=== PATIENT | female | born 1940 | race Asian ===

== ENCOUNTER 2021-04-24 09:23 | Outpatient (REF) | payer MEDICARE, SELFPAY ==
[2021-04-24 09:52] LABS: Hematocrit 33.4 % (37-47); Hemoglobin 10.9 g/dl (12.0-16.0); Mean Corpuscular HGB Conc 32.6 g/dl (31.0-35.0); Mean Corpuscular Hemoglobin 29.8 pg (27.0-33.0); Mean Corpuscular Volume 91.3 fL (80-98); Mean Platelet Volume 10.2 fL (9.4-12.3); Platelet Count 181 X10*3/uL (160-400); Red Blood Count 3.66 X10*6/uL (4.20-5.50); Red Cell Distribution Width 13.2 % (11.0-16.0)
[2021-04-24 09:59] LABS: Estimated Average Glucose 166 mg/dL; Hemoglobin A1c % 7.4 %
[2021-04-24 11:26] LABS: Alanine Aminotransferase 16 U/L (0-31); Albumin Level 4.3 g/dL (3.5-5.0); Alkaline Phosphatase 40 U/L (39-117); Anion Gap 15 (12-20); Aspartate Amino Transferase 20 U/L (5-31); Bilirubin Direct 0.3 mg/dL (0.0-0.5); Bilirubin Total 0.7 mg/dL (0.0-1.0); Blood Urea Nitrogen 12 mg/dL (9-16); Calcium 9.5 mg/dL (8.4-10.2); Carbon Dioxide 23 mmol/L (22-29); Chloride 103 mmol/L (96-108); Cholesterol 173 mg/dL; Estimated Glomerular Filt Rate > 60; Glucose Random 179 mg/dL (60-115); HDL Cholesterol 93 mg/dL; LDL Cholesterol Calculated 61 mg/dl; Potassium 4.3 mmol/L (3.3-5.1); Sodium 137 mmol/L (135-145); Total Protein 7.3 g/dL (6.5-8.0); Triglycerides 96 mg/dL
[2021-04-24 11:44] LABS: Thyroid Stimulating Hormone 0.78 uIU/mL (0.32-4.0)
== END 2021-04-24 09:24 | disposition home or self-care (01) ==
LOC: HO.10HDL 09:23
PROVIDERS: Visit Provider Internal Medicine
DX: E11.9 Type 2 diabetes mellitus without complications (principal); E78.00 Pure hypercholesterolemia, unspecified; I10 Essential (primary) hypertension; K21.9 Gastro-esophageal reflux disease without esophagitis
CPT/HCPCS: 36415; 80048; 80061; 80076; 83036; 84443; 85027

== ENCOUNTER 2021-11-08 10:08 | Outpatient (REF) | payer MEDICARE, SELFPAY ==
[2021-11-08 13:36] LABS: Hematocrit 34.9 % (37.0-47.0); Hemoglobin 11.5 g/dl (12.0-16.0); Mean Corpuscular Hemoglobin 29.6 pg (27.0-33.0); Mean Corpuscular Volume 89.7 fL (80.0-98.0); Mean Platelet Volume 10.6 fL (9.4-12.3); Platelet Count 207 X10*3/uL (160-400); Red Blood Count 3.89 X10*6/uL (4.20-5.50); Red Cell Distribution Width 13.6 % (11.0-16.0); White Blood Count 7.7 X10*3/uL (4.8-10.8)
[2021-11-08 13:55] LABS: Estimated Average Glucose 177 mg/dL; Hemoglobin A1C 192.1413 umol/L; Hemoglobin A1c % 7.8 %
[2021-11-08 14:01] LABS: Appearance Urine CLEAR; Color Urine YELLOW; Glucose Urine UA NEG (NEG); Leukocyte Esterase Urine 1+ (NEG); Nitrite Urine NEG (NEG); Urine Blood NEG (NEG); Urine Ketones NEG (NEG); Urine Protein NEG (NEG-TRACE)
[2021-11-08 14:08] LABS: Thyroid Stimulating Hormone 0.83 uIU/mL (0.32-4.0)
[2021-11-08 14:11] LABS: Alanine Aminotransferase 20 U/L (0-31); Albumin Level 4.5 g/dL (3.5-5.0); Alkaline Phosphatase 37 U/L (39-117); Anion Gap 15 (12-20); Aspartate Amino Transferase 23 U/L (5-31); Bilirubin Direct 0.3 mg/dL (0.0-0.5); Bilirubin Total 0.7 mg/dL (0.0-1.0); Blood Urea Nitrogen 16 mg/dL (9-16); Calcium 9.9 mg/dL (8.4-10.2); Carbon Dioxide 25 mmol/L (22-29); Chloride 101 mmol/L (96-108); Cholesterol 170 mg/dL; Estimated Glomerular Filt Rate > 60; Glucose Random 213 mg/dL (60-115); HDL Cholesterol 79 mg/dL; LDL Cholesterol Calculated 70 mg/dl; Potassium 4.8 mmol/L (3.3-5.1); Sodium 136 mmol/L (135-145); Total Protein 7.7 g/dL (6.5-8.0); Triglycerides 107 mg/dL
[2021-11-08 14:11] LABS: Renal Epithelial Cells Urine TRACE /LPF; Squamous Epithelial Cell Urine 1+ /LPF
[2021-11-08 14:12] LABS: RBC Urine 0 /HPF (0)
[2021-11-08 14:37] LABS: Creatinine Urine 57.15 mg/dL; Microalbum/Creatinine Ratio Ur 38.4 ug/mg cr
== END 2021-11-08 10:09 | disposition home or self-care (01) ==
LOC: HO.10HDL 10:08
PROVIDERS: Visit Provider Internal Medicine
DX: E11.9 Type 2 diabetes mellitus without complications (principal)
CPT/HCPCS: 36415; 80048; 80061; 80076; 81001; 81003; 82043; 83036; 84443; 85027

== ENCOUNTER 2022-03-29 09:50 | Outpatient (REF) | payer MEDICARE, SELFPAY ==
[2022-03-29 10:28] LABS: Hemoglobin 11.1 g/dl (12.0-16.0); Mean Corpuscular HGB Conc 32.6 g/dl (31.0-35.0); Mean Corpuscular Hemoglobin 29.1 pg (27.0-33.0); Mean Platelet Volume 10.3 fL (9.4-12.3); Platelet Count 179 X10*3/uL (160-400); Red Blood Count 3.82 X10*6/uL (4.20-5.50); Red Cell Distribution Width 13.6 % (11.0-16.0); White Blood Count 7.3 X10*3/uL (4.8-10.8)
[2022-03-29 10:34] LABS: Estimated Average Glucose 180 mg/dL; Hemoglobin A1c % 7.9 %
[2022-03-29 11:20] LABS: Alanine Aminotransferase 17 U/L (0-31); Albumin Level 4.4 g/dL (3.5-5.0); Alkaline Phosphatase 38 U/L (39-117); Aspartate Amino Transferase 23 U/L (5-31); Bilirubin Direct 0.3 mg/dL (0.0-0.5); Bilirubin Total 0.6 mg/dL (0.0-1.0); Cholesterol 171 mg/dL; HDL Cholesterol 77 mg/dL; LDL Cholesterol Calculated 67 mg/dl; Total Protein 7.6 g/dL (6.5-8.0); Triglycerides 139 mg/dL
[2022-03-29 11:36] LABS: Creatinine Urine 26.59 mg/dL; Microalbum/Creatinine Ratio Ur 78.9 ug/mg cr
[2022-03-29 11:38] LABS: Appearance Urine HAZY; Color Urine YELLOW; Glucose Urine UA NEG (NEG); Leukocyte Esterase Urine 1+ (NEG); Nitrite Urine NEG (NEG); Specific Gravity - Urine <= 1.005 (1.005-1.025); Urine Blood NEG (NEG); Urine Ketones NEG (NEG); Urine Protein NEG (NEG-TRACE)
[2022-03-29 11:40] LABS: Thyroid Stimulating Hormone 0.83 uIU/mL (0.32-4.0)
[2022-03-29 12:21] LABS: Renal Epithelial Cells Urine 1+ /LPF; Squamous Epithelial Cell Urine 1+ /LPF
[2022-03-29 12:22] LABS: RBC Urine 0 /HPF (0)
== END 2022-03-29 09:51 | disposition home or self-care (01) ==
LOC: HO.LAB 09:50
PROVIDERS: PCP Internal Medicine; Visit Provider Internal Medicine
DX: E11.9 Type 2 diabetes mellitus without complications (principal); I10 Essential (primary) hypertension
CPT/HCPCS: 36415; 80061; 80076; 81001; 82043; 83036; 84443; 85027

== ENCOUNTER 2022-04-04 10:50 | Emergency (ER) | payer MEDICARE, SELFPAY ==
--- NOTE | ~2022-04-04 | CT_ITS ---
EXAMINATION: CT HEAD WITHOUT CONTRAST CLINICAL INFORMATION: Dizziness. COMPARISON: None TECHNIQUE: Contiguous axial imaging was performed from the skull base to vertex without intravenous administration of contrast. Coronal and sagittal reformatted images were obtained. This CT examination was performed using dose optimization techniques as appropriate, variously including the following: *Automated exposure control *Adjustment of mA and/or kV according to patient size (this includes techniques or standardized protocols for targeted exams where dose is matched to indication/reason for exam; i.e. extremities or head) *Use of iterative reconstruction technique DLP: 654 mGy-cm FINDINGS: There is mild widening of the cortical sulci and associated ventriculomegaly. The lateral ventricles are symmetrical. The third and fourth ventricles are in their normal midline position. The basilar and prepontine cisterns are unremarkable. There is no acute intra or extracerebral abnormality. There is no mass effect or midline shift. Sections through the bony calvarium are unremarkable. The orbits are intact. The paranasal sinuses are clear. The mastoid air cells are clear. CT/CT head/brain wo con IMPRESSION: No acute intracranial pathology.
--- NOTE | ~2022-04-04 | XR_ITS ---
EXAMINATION: XR CHEST CLINICAL INFORMATION: Shortness of breath COMPARISON: None TECHNIQUE: Frontal view of the chest was obtained. FINDINGS: Mild patchy interstitial infiltrates noted. Recommend follow-up PA lateral. Heart size borderline with normal caliber pulmonary vessels. There is degenerative change in both shoulder joints. XR/XR chest 1V IMPRESSION: Infiltrates noted possibly chronic however given the patient's age and history I would recommend a repeat PA and lateral film when clinically feasible.
[2022-04-04 10:54] VITALS: BP 167/79; BP 169/87; PULSE 70; PULSE 81; RESP 16; TEMP 36.6; O2SAT 97; O2SAT 98; BMI 24.7
[2022-04-04 11:02] VITALS: BP 169/81; PULSE 80
[2022-04-04 11:03] VITALS: BP 167/79; PULSE 81
[2022-04-04 11:04] VITALS: BP 173/83; PULSE 80
--- NOTE | 2022-04-04 11:05 | ECG_ITS ---
Test Reason : weakness Blood Pressure : / mmHG Vent. Rate : 081 BPM Atrial Rate : 081 BPM P-R Int : 266 ms QRS Dur : 090 ms QT Int : 388 ms P-R-T Axes : 077 027 048 degrees QTc Int : 450 ms Sinus rhythm with 1st degree A-V block Low voltage QRS Borderline ECG No previous ECGs available Referred By: Keith Feng Electronically Signed By:Eliot Castellano
--- NOTE | 2022-04-04 11:08 | ED_ITS ---
HPI - General Adult General Chief complaint: Weakness Stated complaint: GEN WEAK,DIZZY Time Seen by Provider: 04/04/22 11:04 Source: patient, family ( daughter), EMS and [employer] ( daughter) Mode of arrival: EMS Limitations: no limitations History of Present Illness HPI narrative: 81 years old female BIBA for evaluation of dizziness. Patient with history of diabetes, hypertension, hypercholesterolaemia for 1 day she has been having nonbloody watery diarrhea, patient feels dizzy and lightheadedness more when she changed her position from laying flat to standing Position, no history of recent travel or recent use of antibiotic for any reason or recent hospitalization. Patient has a vague description of dizziness but mostly described as lightheadedness and unsteadiness. Patient has no coughing, no shortness of breath, no chest pain, no recent loss of weight. Patient had FaceTime interview with her PCP who advised the patient to come to the ED for further evaluation. Patient received 2nd booster COVID vaccination ([employer]) 4 days ago. Related Data Home Medications Medication Instructions Recorded Confirmed multivitamin 1 tab PO DAILY 04/04/22 vitamin B complex 1 tab PO DAILY 04/04/22 Previous Rx's Medication Instructions Recorded miscellaneous medical supply 1 ea MISCELLANEOUS DAILY #1 ea 05/07/21 blood sugar diagnostic (OneTouch #100 ea 08/20/21 Ultra Test) blood-glucose meter (OneTouch #1 ea 08/20/21 Ultra2 Meter) sitagliptin 50 mg tablet (Januvia) 50 mg PO DAILY 90 Days #90 tab 10/17/21 lancets 30 gauge (OneTouch Delica #100 ea 11/15/21 Lancets) metformin 1,000 mg tablet 1,000 mg PO BID #180 tab 12/04/21 lisinopril 10 mg tablet 10 mg PO DAILY #90 tab 01/03/22 pioglitazone 30 mg tablet 30 mg PO DAILY #90 tab 01/03/22 simvastatin 10 mg tablet 10 mg PO BEDTIME #90 tab 02/08/22 bisoprolol 5 1 tab PO DAILY #90 tab 02/19/22 mg-hydrochlorothiazide 6.25 mg tablet betamethasone dipropionate 0.05 % 1 appl TOPICAL DAILY PRN #45 g 03/20/22 topical cream aspirin 81 mg tablet,delayed 81 mg PO DAILY #90 tab 03/27/22 release Allergies Allergy/AdvReac Type Severity Reaction Status Date / Time No Known Allergies Allergy Verified 04/04/22 09:35 Review of Systems Review of Systems: All other systems are reviewed and are negative Constitutional: Reports as per HPI and Reports no additional constitutional comp laints Eyes: Reports as per HPI and Reports no additional eye complaints Reports system reviewed and no additional complaints, except as documented Cardiovascular: Reports as per HPI and Reports no additional cardiovascular complaints Respiratory: Reports as per HPI and Reports no additional respiratory complaints Gastrointestinal: Reports as per HPI and Reports no additional gastrointestinal complaints Genitourinary: Reports no additional female genitourinary complaints Musculoskeletal: Reports no additional musculoskeletal complaints Skin/Breast: Reports system reviewed and no additional complaints, except as docu Psychiatric: Reports no additional psychiatric complaints Endocrine: Reports no additional endocrine complaints Hematologic/Lymphatic: Reports no additional hematologic/lymphatic complaints Allergic/Immunologic: Reports no additional allergic/immunologic complaints Reports system reviewed and no additional complaints, except as documented and Reports Abnormal speech present [facility] Past Medical History Medical History Diabetes mellitus Essential (primary) hypertension Hypercholesterolemia Surgical History No pertinent past surgical history Family History Family History Father No problems noted. Mother No problems noted. 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 Blood pressure normal. Heart rate normal. Respiration rate normal. Temperature normal. Oxygen saturation normal. Orthostatic vital signs are unremarkable. Appearance: Alert. Oriented X3. No acute distress. Head: Normal external exam. Normocephalic. Atraumatic. No [place] signs noted. No raccoon eyes noted Eyes: PERRLA. EOMI. Conjunctiva and sclera normal. Eyelids normal. ENT: TM's Normal. Pharynx normal. Uvula midline. Moist mucous membranes. No trismus noted. No drooling noted. No muffled voice noted. Neck: Normal inspection. Neck supple. FROM. No adenopathy. Thyroid Normal. No meningeal signs. No neck mass noted. CVS: Normal heart rate and rhythm. Heart sound normal. No murmurs noted. Pulses normal throughout. Respiratory: No respiratory distress. Painless inspiration. Breath sounds normal. No wheezes/rales/rhonchi noted. Chest nontender. No accessory muscle usage noted or decreased air movement noted. Abdomen: Soft and nontender. Bowel sounds normal in all 4 quadrants. No distention noted. No organomegaly noted. No visible injury noted. Back: No CVA tenderness. Full range of motion noted. Skin: Skin warm and dry. Normal skin color. Normal skin turgor. No rashes/lesions/lacerations noted. Extremities: No lower extremity edema. Extremities exhibit normal range of motion. Extremities nontender. Neuro: Oriented X 3. Cranial nerve exam: II-XII are grossly intact No motor deficit. No sensory deficit. Reflexes normal. Course Course Course Narrative: assessment and plan. 81-year-old female came in with nonbloody watery diarrhea and feeling nauseous after taking her 2nd COVID vaccination booster 4 days ago, physical exam is consistent with dehydration, patient feels better after 2 L normal saline And meclizine, patient was able to ambulate in the emergency department with a steady gait. Will discharge and follow up with PCP. Medical Decision Making Lab Data Lab results reviewed: Yes I reviewed the patient's lab results. Result diagrams: 04/04/22 11:28 04/04/22 11:28 Labs: Lab Results 04/04/22 04/04/22 04/04/22 Range/Units 11:28 11:28 11:28 WBC 6.5 (4.8-10.8) X10*3/uL RBC 3.75 L (4.20-5.50) X10*6/uL Hgb 11.0 L (12.0-16.0) g/dl Hct 33.1 L (37.0-47.0) % MCV 88.3 (80.0-98.0) fL MCH 29.3 (27.0-33.0) pg MCHC 33.2 (31.0-35.0) g/dl RDW 13.5 (11.0-16.0) % Plt Count 170 (160-400) X10*3/uL MPV 9.9 (9.4-12.3) fL Immature Gran % (Auto) 0.6 H (0.0-0.4) % Neut % (Auto) 71.9 (45-73) % Lymph % (Auto) 20.6 (20-40) % [place] % (Auto) 6.0 (2-11) % Eos % (Auto) 0.3 (0-4) % Baso % (Auto) 0.6 (0-2) % Lymph # (Auto) 1.4 (1.2-4.9) X10*3/uL [place] # (Auto) 0.4 (0.1-1.2) X10*3/uL Eos # (Auto) 0.0 (0.0-0.4) X10*3/uL Baso # (Auto) 0.0 (0.0-0.2) X10*3/uL Abs Immat Gran (auto) 0.04 H (0.00-0.03) X10*3/uL Absolute Neuts (auto) 4.7 (2.0-8.3) x10*3/uL Absolute Nucleated RBC 0.000 (0.0-0.012) X10*3/uL Nucleated RBC % (auto) 0.0 (0.0-0.2) /100WBC Sodium 135 (135-145) mmol/L Potassium 4.1 (3.3-5.1) mmol/L Chloride 101 (96-108) mmol/L Carbon Dioxide 22 (22-29) mmol/L Anion Gap 16 (12-20) BUN 10 (9-16) mg/dL Creatinine 0.81 (0.5-1.4) mg/dL Estim Creat Clear Calc 48.1 Estimated GFR > 60 Random Glucose 232 H (60-115) mg/dL Calcium 9.1 D (8.4-10.2) mg/dL Total Bilirubin 0.6 (0.0-1.0) mg/dL Direct Bilirubin 0.3 (0.0-0.5) mg/dL AST 25 (5-31) U/L ALT 20 (0-31) U/L Alkaline Phosphatase 38 L (39-117) U/L Troponin I High Sens < 3.5 (<3.5-17.0) ng/L B-Natriuretic Peptide (<100) pg/mL Total Protein 7.3 (6.5-8.0) g/dL Albumin 4.1 (3.5-5.0) g/dL Lipase 36 (8-78) U/L Urine Color Urine Appearance Urine pH (5.0-8.0) Ur Specific [place] (1.005-1.025) Urine Protein (NEG-TRACE) MG/DL Urine Glucose (UA) (NEG) MG/DL Urine Ketones (NEG) MG/DL Urine Blood (NEG) Urine Nitrite (NEG) Ur Leukocyte Esterase (NEG) Urine RBC (0) /HPF Urine WBC (0-4) /HPF Ur Squamous Epith Cells /LPF Urine Bacteria /LPF Stool Occult Blood (NEGATIVE) C. difficile Tox B Gene (Negative) COVID-19 ([facility]) (Negative) COVID-19 Clin Com 04/04/22 04/04/22 04/04/22 Range/Units 11:28 11:28 11:49 WBC (4.8-10.8) X10*3/uL RBC (4.20-5.50) X10*6/uL Hgb (12.0-16.0) g/dl Hct (37.0-47.0) % MCV (80.0-98.0) fL MCH (27.0-33.0) pg MCHC (31.0-35.0) g/dl RDW (11.0-16.0) % Plt Count (160-400) X10*3/uL MPV (9.4-12.3) fL Immature Gran % (Auto) (0.0-0.4) % Neut % (Auto) (45-73) % Lymph % (Auto) (20-40) % [place] % (Auto) (2-11) % Eos % (Auto) (0-4) % Baso % (Auto) (0-2) % Lymph # (Auto) (1.2-4.9) X10*3/uL [place] # (Auto) (0.1-1.2) X10*3/uL Eos # (Auto) (0.0-0.4) X10*3/uL Baso # (Auto) (0.0-0.2) X10*3/uL Abs Immat Gran (auto) (0.00-0.03) X10*3/uL Absolute Neuts (auto) (2.0-8.3) x10*3/uL Absolute Nucleated RBC (0.0-0.012) X10*3/uL Nucleated RBC % (auto) (0.0-0.2) /100WBC Sodium (135-145) mmol/L Potassium (3.3-5.1) mmol/L Chloride (96-108) mmol/L Carbon Dioxide (22-29) mmol/L Anion Gap (12-20) BUN (9-16) mg/dL Creatinine (0.5-1.4) mg/dL Estim Creat Clear Calc Estimated GFR Random Glucose (60-115) mg/dL Calcium (8.4-10.2) mg/dL Total Bilirubin (0.0-1.0) mg/dL Direct Bilirubin (0.0-0.5) mg/dL AST (5-31) U/L ALT (0-31) U/L Alkaline Phosphatase (39-117) U/L Troponin I High Sens (<3.5-17.0) ng/L B-Natriuretic Peptide 116 H (<100) pg/mL Total Protein (6.5-8.0) g/dL Albumin (3.5-5.0) g/dL Lipase (8-78) U/L Urine Color YELLOW Urine Appearance CLEAR Urine pH 6.0 (5.0-8.0) Ur Specific [place] 1.010 (1.005-1.025) Urine Protein NEG (NEG-TRACE) MG/DL Urine Glucose (UA) >=1000 H (NEG) MG/DL Urine Ketones NEG (NEG) MG/DL Urine Blood NEG (NEG) Urine Nitrite NEG (NEG) Ur Leukocyte Esterase NEG (NEG) Urine RBC 0 (0) /HPF Urine WBC 1-4 (0-4) /HPF Ur Squamous Epith Cells 1+ /LPF Urine Bacteria TRACE /LPF Stool Occult Blood (NEGATIVE) C. difficile Tox B Gene (Negative) COVID-19 ([facility]) Negative (Negative) COVID-19 Clin Com See Note 04/04/22 04/04/22 Range/Units 12:53 12:53 WBC (4.8-10.8) X10*3/uL RBC (4.20-5.50) X10*6/uL Hgb (12.0-16.0) g/dl Hct (37.0-47.0) % MCV (80.0-98.0) fL MCH (27.0-33.0) pg MCHC (31.0-35.0) g/dl RDW (11.0-16.0) % Plt Count (160-400) X10*3/uL MPV (9.4-12.3) fL Immature Gran % (Auto) (0.0-0.4) % Neut % (Auto) (45-73) % Lymph % (Auto) (20-40) % [place] % (Auto) (2-11) % Eos % (Auto) (0-4) % Baso % (Auto) (0-2) % Lymph # (Auto) (1.2-4.9) X10*3/uL [place] # (Auto) (0.1-1.2) X10*3/uL Eos # (Auto) (0.0-0.4) X10*3/uL Baso # (Auto) (0.0-0.2) X10*3/uL Abs Immat Gran (auto) (0.00-0.03) X10*3/uL Absolute Neuts (auto) (2.0-8.3) x10*3/uL Absolute Nucleated RBC (0.0-0.012) X10*3/uL Nucleated RBC % (auto) (0.0-0.2) /100WBC Sodium (135-145) mmol/L Potassium (3.3-5.1) mmol/L Chloride (96-108) mmol/L Carbon Dioxide (22-29) mmol/L Anion Gap (12-20) BUN (9-16) mg/dL Creatinine (0.5-1.4) mg/dL Estim Creat Clear Calc Estimated GFR Random Glucose (60-115) mg/dL Calcium (8.4-10.2) mg/dL Total Bilirubin (0.0-1.0) mg/dL Direct Bilirubin (0.0-0.5) mg/dL AST (5-31) U/L ALT (0-31) U/L Alkaline Phosphatase (39-117) U/L Troponin I High Sens (<3.5-17.0) ng/L B-Natriuretic Peptide (<100) pg/mL Total Protein (6.5-8.0) g/dL Albumin (3.5-5.0) g/dL Lipase (8-78) U/L Urine Color Urine Appearance Urine pH (5.0-8.0) Ur Specific [place] (1.005-1.025) Urine Protein (NEG-TRACE) MG/DL Urine Glucose (UA) (NEG) MG/DL Urine Ketones (NEG) MG/DL Urine Blood (NEG) Urine Nitrite (NEG) Ur Leukocyte Esterase (NEG) Urine RBC (0) /HPF Urine WBC (0-4) /HPF Ur Squamous Epith Cells /LPF Urine Bacteria /LPF Stool Occult Blood NEGATIVE (NEGATIVE) C. difficile Tox B Gene NEGATIVE (Negative) COVID-19 ([facility]) (Negative) COVID-19 Clin Com Imaging Data CT scan - head: Attestation: I personally reviewed and interpreted this imaging study as follows: Radiologist's impression: no acute intracranial pathology. Chest x-ray: Attestation: I personally reviewed and interpreted this imaging study as follows: Radiologist's impression: Infiltrates noted possibly chronic however given the patient's age and history I would recommend a repeat PA and lateral film when clinically feasible. ? ECG Data Attestation: I personally reviewed and interpreted this ECG as follows: Interpretation: Normal sinus rhythm at 81 beats per minutes, prolonged [place] interval and first- degree AV block, normal intervals, nonspecific T-ST changes. Discharge Plan Discharge Clinical Impression: Dehydration, Dizziness Patient Disposition: Home, Self-Care Instructions: Dizziness (ED) Prescriptions: No Action miscellaneous medical supply Misc 1 ea miscellaneous DAILY Qty: 1 0RF Rx Instructions: DIABETIC SHOES (DME) OneTouch Ultra Test Strip See Rx Instructions .Route Qty: 100 0RF Rx Instructions: Test Daily (DME) blood-glucose meter [PylbaTouch Ultra2 Meter] Kit See Rx Instructions .ROUTE .MEDSUPPLY Qty: 1 0RF Rx Instructions: TEST DAILY Januvia 50 mg tablet 50 mg PO DAILY 90 Days Qty: 90 1RF metformin 1,000 mg tablet 1,000 mg PO BID Qty: 180 1RF lisinopril 10 mg tablet 10 mg PO DAILY Qty: 90 1RF pioglitazone 30 mg tablet 30 mg PO DAILY Qty: 90 1RF simvastatin 10 mg tablet 10 mg PO BEDTIME Qty: 90 1RF bisoprolol-hydrochlorothiazide 5-6.25 mg tablet 1 tab PO DAILY Qty: 90 1RF betamethasone dipropionate 0.05 % cream 1 appl topical DAILY PRN (Reason: skin irritation) Qty: 45 0RF aspirin 81 mg tablet,delayed release (DR/EC) 81 mg PO DAILY Qty: 90 0RF multivitamin Tablet 1 tab PO DAILY 0RF vitamin B complex Tablet 1 tab PO DAILY 0RF (DME) lancets [OneTouch Delica Lancets] [facility] See Rx Instructions .ROUTE .MEDSUPPLY Qty: 100 0RF Rx Instructions: TEST DAILY Referrals: Marcellus Goldstein MD [Primary Care Provider] -
[2022-04-04] MEDS: 0.9 % Sodium Chloride 1,000 ML 999 ML IV ×2 (11:11→12:58)
[2022-04-04 11:32] LABS: MANUAL DIFF FLAG NO
[2022-04-04 11:36] LABS: Basophils Percent Auto 0.6 % (0-2); Eosinophils Percent Auto 0.3 % (0-4); Hematocrit 33.1 % (37.0-47.0); Imm Gran Abs Auto 0.04 X10*3/uL (0.00-0.03); Imm Gran Pct Auto 0.6 % (0.0-0.4); Lymphocytes Absolute Auto 1.4 X10*3/uL (1.2-4.9); Lymphocytes Percent Auto 20.6 % (20-40); Mean Corpuscular HGB Conc 33.2 g/dl (31.0-35.0); Mean Corpuscular Hemoglobin 29.3 pg (27.0-33.0); Mean Corpuscular Volume 88.3 fL (80.0-98.0); Mean Platelet Volume 9.9 fL (9.4-12.3); Monocytes Absolute Auto 0.4 X10*3/uL (0.1-1.2); Neutrophils Absolute Auto 4.7 x10*3/uL (2.0-8.3); Neutrophils Percent Auto 71.9 % (45-73); Platelet Count 170 X10*3/uL (160-400); Red Blood Count 3.75 X10*6/uL (4.20-5.50); Red Cell Distribution Width 13.5 % (11.0-16.0); White Blood Count 6.5 X10*3/uL (4.8-10.8)
[2022-04-04 11:50] LABS: COVID-19 Test Negative (Negative)
[2022-04-04 11:58] LABS: Appearance Urine CLEAR; Color Urine YELLOW; Glucose Urine UA >=1000 MG/DL (NEG); Leukocyte Esterase Urine NEG (NEG); Nitrite Urine NEG (NEG); Urine Blood NEG (NEG); Urine Ketones NEG (NEG); Urine Protein NEG (NEG-TRACE)
[2022-04-04 12:03] LABS: Alanine Aminotransferase 20 U/L (0-31); Albumin Level 4.1 g/dL (3.5-5.0); Alkaline Phosphatase 38 U/L (39-117); Anion Gap 16 (12-20); Aspartate Amino Transferase 25 U/L (5-31); Bilirubin Direct 0.3 mg/dL (0.0-0.5); Bilirubin Total 0.6 mg/dL (0.0-1.0); Blood Urea Nitrogen 10 mg/dL (9-16); Calcium 9.1 mg/dL (8.4-10.2); Carbon Dioxide 22 mmol/L (22-29); Chloride 101 mmol/L (96-108); Creatinine Clr Calc Pharmacy 48.1; Estimated Glomerular Filt Rate > 60; Glucose Random 232 mg/dL (60-115); Lipase 36 U/L (8-78); Potassium 4.1 mmol/L (3.3-5.1); Sodium 135 mmol/L (135-145); Total Protein 7.3 g/dL (6.5-8.0)
[2022-04-04 12:07] LABS: B Type Natriuretic Peptide 116 pg/mL (<100); Troponin-I High Sensitivity < 3.5 ng/L (<3.5-17.0)
[2022-04-04 12:08] LABS: Bacteria Urine TRACE /LPF; RBC Urine 0 /HPF (0); Squamous Epithelial Cell Urine 1+ /LPF
[2022-04-04 12:27] VITALS: BP 153/72; PULSE 73; RESP 10; O2SAT 96
[2022-04-04 13:11] LABS: OBS Int Ctl Valid YES; OBS1 NEGATIVE (NEGATIVE)
[2022-04-04 14:02] LABS: CDiff Gene PCR NEGATIVE (Negative)
[2022-04-04] MEDS: Loperamide HCl 2 MG CAPSULE PO (14:32)
[2022-04-04 14:37] VITALS: BP 149/69; PULSE 75; RESP 16; O2SAT 99
[2022-04-04] MEDS: Meclizine HCl 25 MG TABLET PO (15:30)
== END 2022-04-04 17:30 | disposition home or self-care (01) ==
PROVIDERS: Emergency Provider Emergency Medicine; PCP Internal Medicine
DX: R42 Dizziness and giddiness (principal); E86.0 Dehydration; R53.1 Weakness; Z20.822 Contact with and (suspected) exposure to COVID-19; E11.9 Type 2 diabetes mellitus without complications; I10 Essential (primary) hypertension; E78.5 Hyperlipidemia, unspecified; Z79.899 Other long term (current) drug therapy; Z79.82 Long term (current) use of aspirin; Z79.02 Long term (current) use of antithrombotics/antiplatelets
CPT/HCPCS: 36415; 70450; 71045; 80048; 80076; 81001; 82272; 83690; 83880; 84484; 85025; 87493; 87635; 93005; 96360; 96361; 99284

== ENCOUNTER 2022-05-24 11:18 | Outpatient (REF) | payer OTHER, SELFPAY ==
--- NOTE | ~2022-05-24 | XR_ITS ---
EXAMINATION: XR BILATERAL KNEES CLINICAL INFORMATION: Bilateral knee pain. COMPARISON: None. TECHNIQUE: 3 views of each knee. FINDINGS: LEFT KNEE: 3 views of the left knee do not demonstrate any evidence of acute fracture or dislocation. There is narrowing of the medial joint space compartment with marginal spurring and sclerosis. There is some narrowing of the patellofemoral joint with marginal spurring. Small patella spurs seen at sites of insertion of the quadriceps and patellar tendons. Bony density adjacent to the mediofemoral condyle is present consistent with previous medial collateral ligament injury. There is a small amount of suprapatellar fluid present. Lateral joint space compartment is maintained. RIGHT KNEE: 3 views of the right knee demonstrate minimal narrowing of the medial joint space compartment. No acute fracture or dislocation is evident. No knee effusion is seen. There is spurring about the patellofemoral joint involving both medial and lateral facets. Patella spurs at insertion quadriceps tendon noted. 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
--- NOTE | ~2022-05-24 | XR_ITS ---
EXAMINATION: XR BILATERAL KNEES CLINICAL INFORMATION: Bilateral knee pain. COMPARISON: None. TECHNIQUE: 3 views of each knee. FINDINGS: LEFT KNEE: 3 views of the left knee do not demonstrate any evidence of acute fracture or dislocation. There is narrowing of the medial joint space compartment with marginal spurring and sclerosis. There is some narrowing of the patellofemoral joint with marginal spurring. Small patella spurs seen at sites of insertion of the quadriceps and patellar tendons. Bony density adjacent to the mediofemoral condyle is present consistent with previous medial collateral ligament injury. There is a small amount of suprapatellar fluid present. Lateral joint space compartment is maintained. RIGHT KNEE: 3 views of the right knee demonstrate minimal narrowing of the medial joint space compartment. No acute fracture or dislocation is evident. No knee effusion is seen. There is spurring about the patellofemoral joint involving both medial and lateral facets. Patella spurs at insertion quadriceps tendon noted. 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
== END 2022-05-24 11:19 | disposition home or self-care (01) ==
LOC: HO.XRAY 11:18
PROVIDERS: PCP Internal Medicine; Visit Provider Nurse Practitioner Family
DX: M25.561 Pain in right knee (principal); M25.562 Pain in left knee
CPT/HCPCS: 73562

== ENCOUNTER 2022-07-06 09:47 | Outpatient (REF) | payer OTHER, SELFPAY ==
[2022-07-06 11:35] LABS: Appearance Urine Clear; Color Urine Yellow; Glucose Urine UA Negative (Negative); Leukocyte Esterase Urine Moderate (2+) (Negative); Nitrite Urine Negative (Negative); Urine Blood Negative (Negative); Urine Ketones Negative (Negative); Urine Protein Trace mg/dL (Neg-Trace)
[2022-07-06 11:41] LABS: Bacteria Urine None Seen (None Seen); Hyaline Casts Urine 0-2 /LPF (0-2); RBC Urine 0-2 /HPF (0-2); Squamous Epithelial Cell Urine 0-2 /HPF (0-2); UACC Culture Trigger YES; WBC Urine 21-50 /HPF (0-5)
== END 2022-07-06 09:48 | disposition home or self-care (01) ==
LOC: HO.LAB 09:47
PROVIDERS: PCP Internal Medicine; Visit Provider Internal Medicine
DX: I10 Essential (primary) hypertension (principal); E11.9 Type 2 diabetes mellitus without complications
CPT/HCPCS: 81001; 87086

== ENCOUNTER 2022-07-09 09:38 | Outpatient (REF) | payer OTHER, SELFPAY ==
[2022-07-09 10:44] LABS: Hematocrit 33.6 % (37.0-47.0); Hemoglobin 11.1 g/dl (12.0-16.0); Mean Corpuscular Hemoglobin 29.6 pg (27.0-33.0); Mean Corpuscular Volume 89.6 fL (80.0-98.0); Mean Platelet Volume 10.8 fL (9.4-12.3); Platelet Count 192 X10*3/uL (160-400); Red Blood Count 3.75 X10*6/uL (4.20-5.50); Red Cell Distribution Width 13.3 % (11.0-16.0); White Blood Count 6.9 X10*3/uL (4.8-10.8)
[2022-07-09 11:09] LABS: Estimated Average Glucose 180 mg/dL; Hemoglobin A1c % 7.9 %
[2022-07-09 11:21] LABS: Alanine Aminotransferase 19 U/L (0-31); Albumin Level 4.2 g/dL (3.5-5.0); Alkaline Phosphatase 44 U/L (39-117); Anion Gap 16 (12-20); Aspartate Amino Transferase 27 U/L (5-31); Bilirubin Direct 0.3 mg/dL (0.0-0.5); Bilirubin Total 0.7 mg/dL (0.0-1.0); Blood Urea Nitrogen 11 mg/dL (9-16); Calcium 9.5 mg/dL (8.4-10.2); Carbon Dioxide 26 mmol/L (22-29); Chloride 101 mmol/L (96-108); Cholesterol 163 mg/dL; Estimated Glomerular Filt Rate > 60; Glucose Random 214 mg/dL (60-115); HDL Cholesterol 82 mg/dL; LDL Cholesterol Calculated 61 mg/dl; Potassium 4.9 mmol/L (3.3-5.1); Sodium 138 mmol/L (135-145); Total Protein 7.3 g/dL (6.5-8.0); Triglycerides 100 mg/dL
[2022-07-09 11:30] LABS: Thyroid Stimulating Hormone 0.68 uIU/mL (0.32-4.0)
== END 2022-07-09 09:39 | disposition home or self-care (01) ==
LOC: HO.LAB 09:38
PROVIDERS: PCP Internal Medicine; Visit Provider Internal Medicine
DX: E11.9 Type 2 diabetes mellitus without complications (principal)
CPT/HCPCS: 36415; 80048; 80061; 80076; 83036; 84443; 85027

== ENCOUNTER 2022-10-04 10:02 | Outpatient (REF) | payer OTHER, SELFPAY ==
[2022-10-04 10:58] LABS: Appearance Urine Cloudy; Color Urine Yellow; Glucose Urine UA Negative (Negative); Leukocyte Esterase Urine Large (3+) (Negative); Nitrite Urine Negative (Negative); PH 5.5 (5.0-9.0); Specific Gravity - Urine 1.015 (1.005-1.025); UMIC TRIGGER UA YES; Urine Blood Negative (Negative); Urine Ketones Negative (Negative); Urine Protein Negative (Neg-Trace)
[2022-10-04 10:58] LABS: Hemoglobin 10.9 g/dl (12.0-16.0); Mean Corpuscular Hemoglobin 29.1 pg (27.0-33.0); Mean Corpuscular Volume 88.2 fL (80.0-98.0); Mean Platelet Volume 10.7 fL (9.4-12.3); Platelet Count 185 X10*3/uL (160-400); Red Blood Count 3.74 X10*6/uL (4.20-5.50); Red Cell Distribution Width 13.4 % (11.0-16.0); White Blood Count 7.4 X10*3/uL (4.8-10.8)
[2022-10-04 11:11] LABS: Bacteria Urine None Seen (None Seen); Hyaline Casts Urine 0-2 /LPF (0-2); Other Crystals Urine Present; RBC Urine 0-2 /HPF (0-2); WBC Urine >50 /HPF (0-5)
[2022-10-04 11:41] LABS: Alanine Aminotransferase 18 U/L (0-31); Albumin Level 4.3 g/dL (3.5-5.0); Alkaline Phosphatase 38 U/L (39-117); Anion Gap 17 (12-20); Aspartate Amino Transferase 25 U/L (5-31); Bilirubin Direct 0.3 mg/dL (0.0-0.5); Bilirubin Total 0.7 mg/dL (0.0-1.0); Blood Urea Nitrogen 15 mg/dL (9-16); Calcium 9.7 mg/dL (8.4-10.2); Carbon Dioxide 24 mmol/L (22-29); Chloride 100 mmol/L (96-108); Cholesterol 158 mg/dL; Estimated Glomerular Filt Rate > 60; Glucose Random 202 mg/dL (60-115); HDL Cholesterol 78 mg/dL; LDL Cholesterol Calculated 63 mg/dl; Potassium 4.5 mmol/L (3.3-5.1); Sodium 136 mmol/L (135-145); Total Protein 7.4 g/dL (6.5-8.0); Triglycerides 88 mg/dL
[2022-10-04 11:46] LABS: Estimated Average Glucose 186 mg/dL; Hemoglobin A1c % 8.1 %
[2022-10-04 11:48] LABS: Thyroid Stimulating Hormone 0.82 uIU/mL (0.32-4.0)
== END 2022-10-04 10:03 | disposition home or self-care (01) ==
LOC: HO.LAB 10:02
PROVIDERS: PCP Internal Medicine; Visit Provider Internal Medicine
DX: E11.9 Type 2 diabetes mellitus without complications (principal); K21.9 Gastro-esophageal reflux disease without esophagitis
CPT/HCPCS: 36415; 80048; 80061; 80076; 81001; 83036; 84443; 85027

== ENCOUNTER 2022-12-07 09:49 | Outpatient (REF) | payer OTHER, SELFPAY ==
[2022-12-07 10:07] LABS: Hematocrit 34.7 % (37.0-47.0); Hemoglobin 11.4 g/dl (12.0-16.0); Mean Corpuscular HGB Conc 32.9 g/dl (31.0-35.0); Mean Corpuscular Hemoglobin 29.6 pg (27.0-33.0); Mean Corpuscular Volume 90.1 fL (80.0-98.0); Mean Platelet Volume 10.2 fL (9.4-12.3); Platelet Count 174 X10*3/uL (160-400); Red Blood Count 3.85 X10*6/uL (4.20-5.50); Red Cell Distribution Width 13.2 % (11.0-16.0); White Blood Count 7.5 X10*3/uL (4.8-10.8)
[2022-12-07 10:25] LABS: Estimated Average Glucose 177 mg/dL; Hemoglobin A1c % 7.8 %
[2022-12-07 10:37] LABS: Alanine Aminotransferase 17 U/L (0-31); Albumin Level 4.2 g/dL (3.5-5.0); Alkaline Phosphatase 43 U/L (39-117); Anion Gap 15 (12-20); Aspartate Amino Transferase 23 U/L (5-31); Bilirubin Direct 0.3 mg/dL (0.0-0.5); Bilirubin Total 0.8 mg/dL (0.0-1.0); Blood Urea Nitrogen 15 mg/dL (9-16); Calcium 9.5 mg/dL (8.4-10.2); Carbon Dioxide 27 mmol/L (22-29); Chloride 100 mmol/L (96-108); Cholesterol 176 mg/dL; Estimated Glomerular Filt Rate > 60; Glucose Random 204 mg/dL (60-115); HDL Cholesterol 78 mg/dL; LDL Cholesterol Calculated 78 mg/dl; Potassium 4.3 mmol/L (3.3-5.1); Sodium 138 mmol/L (135-145); Total Protein 7.3 g/dL (6.5-8.0); Triglycerides 101 mg/dL
[2022-12-07 10:53] LABS: Thyroid Stimulating Hormone 0.78 uIU/mL (0.32-4.0)
== END 2022-12-07 09:50 | disposition home or self-care (01) ==
LOC: HO.LAB 09:49
PROVIDERS: PCP Internal Medicine; Visit Provider Internal Medicine
DX: E11.9 Type 2 diabetes mellitus without complications (principal)
CPT/HCPCS: 36415; 80048; 80061; 80076; 83036; 84443; 85027

== ENCOUNTER 2023-04-08 12:39 | Outpatient (REF) | payer OTHER, SELFPAY ==
[2023-04-08 13:03] LABS: Appearance Urine Turbid; Color Urine Yellow; Glucose Urine UA 500 mg/dL (Negative); Leukocyte Esterase Urine Large (3+) (Negative); Nitrite Urine Negative (Negative); Specific Gravity - Urine 1.015 (1.005-1.025); UMIC TRIGGER UACC YES; Urine Blood Small (1+) (Negative); Urine Ketones Negative (Negative); Urine Protein 100 (2+) mg/dL (Neg-Trace)
[2023-04-08 13:21] LABS: Bacteria Urine 1+ (None Seen); Hyaline Casts Urine 0-2 /LPF (0-2); Squamous Epithelial Cell Urine 0-2 /HPF (0-2); UACC Culture Trigger YES; WBC Urine >50 /HPF (0-5)
== END 2023-04-08 12:40 | disposition home or self-care (01) ==
LOC: HO.LNP 12:39
PROVIDERS: Visit Provider Internal Medicine
DX: R82.90 Unspecified abnormal findings in urine (principal); R68.89 Other general symptoms and signs
CPT/HCPCS: 81001; 81003; 87086

== ENCOUNTER 2023-04-21 13:46 | Outpatient (REF) | payer OTHER, SELFPAY ==
[2023-04-22 14:23] LABS: Appearance Urine Clear; Color Urine Dark Yellow; Glucose Urine UA Negative (Negative); Leukocyte Esterase Urine Large (3+) (Negative); Nitrite Urine Negative (Negative); PH 5.5 (5.0-9.0); Specific Gravity - Urine 1.015 (1.005-1.025); UMIC TRIGGER UACC YES; Urine Blood Negative (Negative); Urine Ketones Negative (Negative); Urine Protein Negative (Neg-Trace)
[2023-04-22 14:29] LABS: Bacteria Urine Trace (None Seen); Hyaline Casts Urine 0-2 /LPF (0-2); RBC Urine 0-2 /HPF (0-2); UACC Culture Trigger YES; WBC Urine >50 /HPF (0-5)
== END 2023-04-21 13:47 | disposition home or self-care (01) ==
LOC: HO.LNP 13:46
PROVIDERS: Visit Provider Internal Medicine
DX: N39.0 Urinary tract infection, site not specified (principal)
CPT/HCPCS: 81001; 81003; 87086

== ENCOUNTER 2023-06-14 10:02 | Outpatient (REF) | payer OTHER, SELFPAY ==
[2023-06-14 10:52] LABS: Hematocrit 32.6 % (37.0-47.0); Hemoglobin 10.6 g/dl (12.0-16.0); Mean Corpuscular HGB Conc 32.5 g/dl (31.0-35.0); Mean Corpuscular Hemoglobin 28.4 pg (27.0-33.0); Mean Corpuscular Volume 87.4 fL (80.0-98.0); Mean Platelet Volume 10.3 fL (9.4-12.3); Platelet Count 213 X10*3/uL (160-400); Red Blood Count 3.73 X10*6/uL (4.20-5.50); Red Cell Distribution Width 13.8 % (11.0-16.0); White Blood Count 6.5 X10*3/uL (4.8-10.8)
[2023-06-14 10:59] LABS: Appearance Urine Clear; Color Urine Yellow; Glucose Urine UA Negative (Negative); Leukocyte Esterase Urine Moderate (2+) (Negative); Nitrite Urine Negative (Negative); UMIC TRIGGER UA YES; Urine Blood Negative (Negative); Urine Ketones Negative (Negative); Urine Protein Negative (Neg-Trace)
[2023-06-14 11:04] LABS: Bacteria Urine None Seen (None Seen); Hyaline Casts Urine 0-2 /LPF (0-2); RBC Urine 0-2 /HPF (0-2); Squamous Epithelial Cell Urine 0-2 /HPF (0-2)
[2023-06-14 11:33] LABS: Creatinine Urine 29.15 mg/dL; Microalbum/Creatinine Ratio Ur 54.8 ug/mg cr
[2023-06-14 11:36] LABS: Estimated Average Glucose 177 mg/dL; Hemoglobin A1c % 7.8 %
[2023-06-14 12:00] LABS: Alanine Aminotransferase 17 U/L (0-31); Albumin Level 3.9 g/dL (3.5-5.0); Alkaline Phosphatase 47 U/L (39-117); Anion Gap 16 (12-20); Aspartate Amino Transferase 26 U/L (5-31); Bilirubin Direct 0.2 mg/dL (0.0-0.5); Bilirubin Total 0.5 mg/dL (0.0-1.0); Blood Urea Nitrogen 17 mg/dL (9-16); Calcium 9.8 mg/dL (8.4-10.2); Carbon Dioxide 22 mmol/L (22-29); Chloride 100 mmol/L (96-108); Cholesterol 140 mg/dL; Estimated Glomerular Filt Rate > 60; Glucose Random 228 mg/dL (60-115); HDL Cholesterol 70 mg/dL; LDL Cholesterol Calculated 50 mg/dl; Potassium 4.3 mmol/L (3.3-5.1); Sodium 134 mmol/L (135-145); Total Protein 7.7 g/dL (6.5-8.0); Triglycerides 101 mg/dL
[2023-06-14 12:03] LABS: Thyroid Stimulating Hormone 0.89 uIU/mL (0.32-4.0)
== END 2023-06-14 10:03 | disposition home or self-care (01) ==
LOC: HO.LAB 10:02
PROVIDERS: PCP Internal Medicine; Visit Provider Internal Medicine
DX: E11.9 Type 2 diabetes mellitus without complications (principal); E78.00 Pure hypercholesterolemia, unspecified
CPT/HCPCS: 36415; 80048; 80061; 80076; 81001; 81003; 82043; 83036; 84443; 85027

== ENCOUNTER 2023-06-19 08:56 | Outpatient (AMB) | payer OTHER, SELFPAY ==
--- NOTE | 2023-06-19 08:59 | MHC.PC.OV ---
Vital Signs 06/19/23 09:01 Height 4 ft 11 in Weight 141 lb 2 oz BMI 28.5 BP 110/70 Blood Pressure Location Lt brachial Position Sitting Pulse 74 Pulse Source Pulse Oximeter Pulse Oximetry (%) 98 Oxygen Delivery Method Room Air Intake Visit Reasons: 6mth f/u Intake Note: Patient is here to follow up on HTN, DM, Hypercholesterolemia. Feed Mill Manager Required: Yes Feed Mill Manager Name: Maryam (Daughter) Information Interpreted: non-clinical & clinical Excellence Coach: Present Accompanied by: Daughter Allergies No Known Allergies Allergy (Verified 07/05/23 08:30) Medication List - Last Reconciled 07/05/23 by Marcellus Goldstein MD aspirin 81 mg PO DAILY 90 days betamethasone dipropionate 0.05% 1 appl topical DAILY PRN bisoprolol-hydrochlorothiazide 5-6.25 mg 1 tab PO DAILY blood sugar diagnostic ([employer] Ultra Test strips) USE TO TEST DAILY blood-glucose meter ([employer] Ultra2 Meter kit) TEST DAILY cholecalciferol (vitamin D3) 25 mcg PO DAILY lancets ([employer] Delica Lancets) TEST DAILY lisinopril 10 mg PO DAILY metformin 1,000 mg PO BID miscellaneous medical supply 1 ea miscellaneous DAILY miscellaneous medical supply 1 ea miscellaneous DAILY multivitamin 1 tab PO DAILY omega 8-zmc-tnq-fish oil 60-90-500 mg (Fish Oil) 1 cap PO DAILY omeprazole 20 mg PO DAILY phenazopyridine (Pyridium) 200 mg PO TID 3 days pioglitazone 30 mg PO DAILY simvastatin 10 mg PO BEDTIME sitagliptin phosphate (Januvia) 50 mg PO DAILY 90 days vitamin B complex 1 tab PO DAILY Tobacco use date assessed: 06/19/23 Fall risk assessment: No Falls in past year Last assessed Fall Risk: 06/19/23 Dental Screening Dental Screen Date: 06/19/23 Did you have a dental visit in the last 12 months?: No Did you have a dental problem in the last 6 months where you did not have access to dental care?: No Was dental information given to patient?: No HPI 6mth f/u HPI Details 82-year-old female presents to the office to discuss her chronic medical conditions. Due to a language barrier, her daughter history speaking on her behalf. Daughter reports that patient is at baseline state of health. She is compliant with medications and able to function and do activities of daily living. She restricts herself to the home and has minimal exercise. She is able to take care of her personal hygiene and needs some assistance in bathing. Her sleep patterns are okay. Appetite is good. No history of falls in the past year.. [facility] Medical History Diabetes mellitus Essential (primary) hypertension GERD (gastroesophageal reflux disease) Hypercholesterolemia Surgical History No pertinent past surgical history Family History Father No problems noted. Mother No problems noted. Social History Housing: House Alcohol intake: never Patient Tobacco Use Status: Never used Tobacco e-Cigarette/Vaping Use: Never Used Second Hand Smoke Exposure: No service: No Current occupational status: unemployed Cognitive needs: Yes (cane/wheelchair/walker) Hearing needs: No Vision needs: No Questionnaire Thrive Questionnaire Date Thrive assessed: 12/23/22 DARLINE-7 AMB Questionnaire DARLINE-7 Date DARLINE - 7 assessed: 12/23/22 Source: Developed by Drs. Colin Lujan, Ingrid Stringer, Royal Mills and colleagues, with an educational harry from [employer]. Physical exam (Primary Care) Vital Signs: Last Vital Signs Pulse 74 06/19/23 09:01 BP 110/70 06/19/23 09:01 Pulse Ox 98 06/19/23 09:01 Oxygen Delivery Method Room Air 06/19/23 09:01 Care Plan Goal for BP management: Blood pressure is in range. Continue current medications. BMI result Body Mass Index 28.5 Tobacco/Smoking Status: Tobacco use Status Tobacco use date assessed 06/19/23 06/19/23 09:10 Patient Tobacco Use Status Never used Tobacco 06/19/23 09:10 e-Cigarette/Vaping Use Never Used 06/19/23 09:10 Thrive Assessment: Date of Thrive Assessment Date Thrive assessed 12/23/22 06/19/23 09:10 Advance Care Planning discussion: Exists, not on file Date of discussion: 06/19/23 Who was present: Patient and daughter. Forms completed: Health Care Proxy and MOLST Time spent: 1-15 minutes, not on file Actual minutes spent: 5 Const General: cooperative, healthy appearing and comfortable HENMT Head: Yes normal to inspection and Yes atraumatic Eyes General: appearance normal, both eyes and all related structures Neck Neck: Yes normal visual inspection and Yes full ROM Chest Chest palpation & inspection: normal inspection of the chest Resp Effort & Inspection: normal respiratory effort Auscultation: clear to auscultation bilaterally Cardio Jugular venous distension: no JVD Palpation: normal PMI Rate: regular rate Heart sounds: S1 normal heart sound present and S2 normal heart sound present GI Palpation (GI): Soft to palpation and No hepatosplenomegaly present Extrem General: Yes normal to inspection and Yes full ROM Assessment and Plan Assessment & Plan (1) Diabetes mellitus: Code(s): E11.9 - Type 2 diabetes mellitus without complications Qualifiers: Diabetes mellitus type: type 2 Diabetes mellitus fdc insulin use: without predatory animal exterminator use Diabetes mellitus complication status: without complication Qualified Code(s): E11.9 - Type 2 diabetes mellitus without complications Plan: A1c is 7.8. Owing to the patient's advanced age, this numbers acceptable. Continue medications at current dosage. (2) Hypercholesterolemia: Code(s): E78.00 - Pure hypercholesterolemia, unspecified Plan: LDL is in range. Continue medications at same dosage. (3) Essential (primary) hypertension: Code(s): I10 - Essential (primary) hypertension Plan: Blood pressure is in range. Continue medications at same dosage. Coding Level of Care Code Est Pt Level 4 (15747) Diagnoses Diabetes mellitus E11.9 Diabetes mellitus type: type 2 Diabetes mellitus predatory animal exterminator insulin use: without predatory animal exterminator use Diabetes mellitus complication status: without complication Hypercholesterolemia E78.00 Essential (primary) hypertension I10 Additional Codes Vital Signs *Quality* - Advance Care Planning discussion: Exists, not on file ([id number]) Vital Signs *Quality* - Time spent: 1-15 minutes, not on file ([id number])
[2023-06-19 09:01] VITALS: BP 110/70; PULSE 74; O2SAT 98; BMI 28.5
== END 2023-06-19 09:23 | disposition home or self-care (01) ==
PROVIDERS: Visit Provider Internal Medicine
DX: E11.9 Type 2 diabetes mellitus without complications (principal); E78.00 Pure hypercholesterolemia, unspecified; I10 Essential (primary) hypertension
CPT/HCPCS: 1124F; 99214

== ENCOUNTER 2023-10-04 10:22 | Outpatient (REF) | payer OTHER, SELFPAY ==
[2023-10-04 11:34] LABS: Appearance Urine Clear; Color Urine Yellow; Glucose Urine UA Negative (Negative); Leukocyte Esterase Urine Moderate (2+) (Negative); Nitrite Urine Negative (Negative); PH 5.5 (5.0-9.0); Specific Gravity - Urine 1.015 (1.005-1.025); UMIC TRIGGER UA YES; UMIC TRIGGER UACC YES; Urine Blood Negative (Negative); Urine Ketones Negative (Negative); Urine Protein Negative (Neg-Trace)
[2023-10-04 11:38] LABS: Bacteria Urine None Seen (None Seen); Hyaline Casts Urine 0-2 /LPF (0-2); RBC Urine 0-2 /HPF (0-2); Squamous Epithelial Cell Urine 0-2 /HPF (0-2); UACC Culture Trigger YES; WBC Urine 21-50 /HPF (0-5)
== END 2023-10-04 10:23 | disposition home or self-care (01) ==
LOC: HO.LAB 10:22
PROVIDERS: PCP Internal Medicine; Visit Provider Internal Medicine
DX: E11.9 Type 2 diabetes mellitus without complications (principal); E78.00 Pure hypercholesterolemia, unspecified; R82.90 Unspecified abnormal findings in urine
CPT/HCPCS: 81001; 87086

== ENCOUNTER 2023-10-09 09:00 | Outpatient (AMB) | payer OTHER, SELFPAY ==
[2023-10-09 09:20] VITALS: BP 112/72; PULSE 70; O2SAT 96; BMI 28.9
--- NOTE | 2023-10-09 09:20 | A.OFFPC_ITS ---
Vital Signs 10/09/23 09:20 Height 4 ft 11 in Weight 143 lb BMI 28.9 BP 112/72 Blood Pressure Location Lt brachial Position Sitting Pulse 70 Pulse Source Pulse Oximeter Pulse Oximetry (%) 96 Oxygen Delivery Method Room Air Intake Visit Reasons: 3mth f/u Intake Note: Patient here for a 3 month follow up Swing Manager Required: No Accompanied by: Daughter/ COMMERCIAL ENERGY AUDITOR Allergies No Known Allergies Allergy (Verified 10/09/23 10:03) Medication List - Last Reconciled 10/09/23 by Marcellus Goldstein MD aspirin 81 mg PO DAILY 90 days betamethasone dipropionate 0.05% 1 appl topical DAILY PRN bisoprolol-hydrochlorothiazide 5-6.25 mg 1 tab PO DAILY blood sugar diagnostic ([employer] Ultra Test strips) USE TO TEST DAILY blood-glucose meter ([employer] Ultra2 Meter kit) TEST DAILY cholecalciferol (vitamin D3) 25 mcg PO DAILY lancets ([employer] Delica Lancets) TEST DAILY lisinopril 10 mg PO DAILY metformin 1,000 mg PO BID miscellaneous medical supply 1 ea miscellaneous DAILY miscellaneous medical supply 1 ea miscellaneous DAILY multivitamin 1 tab PO DAILY omega 0-btr-jyo-fish oil 60-90-500 mg (Fish Oil) 1 cap PO DAILY omeprazole 20 mg PO DAILY phenazopyridine (Pyridium) 200 mg PO TID 3 days pioglitazone 30 mg PO DAILY simvastatin 10 mg PO BEDTIME sitagliptin phosphate (Januvia) 50 mg PO DAILY 90 days vitamin B complex 1 tab PO DAILY Tobacco use date assessed: 06/19/23 Fall risk assessment: No Falls in past year Last assessed Fall Risk: 10/09/23 Dental Screening Dental Screen Date: 10/09/23 Did you have a dental visit in the last 12 months?: Yes Did you have a dental problem in the last 6 months where you did not have access to dental care?: No Was dental information given to patient?: Patient has dentist HPI 3mth f/u HPI Details 82-year-old female presents to the [facility] to discuss her chronic medical conditions. Daughter is translating on behalf. Daughter reports that patient complains of body aches. Her blood sugar at home has been elevated. Daughter attributes it to a poor diet. She has been eating a lot of rice and at irregular intervals. No exercise. [facility] Medical History Essential (primary) hypertension Hypercholesterolemia Diabetes mellitus GERD (gastroesophageal reflux disease) Surgical History No pertinent past surgical history Family History Father No problems noted. Mother No problems noted. Social History Housing: House Alcohol intake: never Patient Tobacco Use Status: Never used Tobacco e-Cigarette/Vaping Use: Never Used Second Hand Smoke Exposure: No service: No Current occupational status: unemployed Cognitive needs: Yes (cane/wheelchair/walker) Hearing needs: No Vision needs: No Questionnaire PHQ-9 Over the last 2 weeks, how often have you been bothered by any of the following problems? Depression Screening Interpretation: Negative Depression Screening Done: Yes Source: Developed by Drs. Colin Lujan, Ingrid Stringer, Royal Mills and colleagues, with an educational harry from [employer]. Thrive Questionnaire Date Thrive assessed: 12/23/22 Currently or been in a relationship where the following occur: no concerns reported DARLINE-7 AMB Questionnaire DARLINE-7 Date DARLINE - 7 assessed: 12/23/22 Source: Developed by Drs. Colin Lujan, Ingrid Stringer, Royal Mills and colleagues, with an educational harry from [employer]. Physical exam (Primary Care) Vital Signs: Last Vital Signs Pulse 70 10/09/23 09:20 BP 112/72 10/09/23 09:20 Pulse Ox 96 10/09/23 09:20 Oxygen Delivery Method Room Air 10/09/23 09:20 Care Plan Goal for BP management: Blood pressure is in range. Continue current medications. BMI result Body Mass Index 28.9 Tobacco/Smoking Status: Tobacco use Status Tobacco use date assessed 06/19/23 10/09/23 09:22 Patient Tobacco Use Status Never used Tobacco 10/09/23 09:22 e-Cigarette/Vaping Use Never Used 10/09/23 09:22 Tobacco cessation counseling provided: No Depression Screening Interpretation: Negative Thrive Assessment: Date of Thrive Assessment Date Thrive assessed 12/23/22 10/09/23 09:22 Currently or been in a relationship where the following occur: no concerns reported Results AMB Hemoglobin A1c AMB Hemoglobin A1c 9.4 % Last Edit by DUSTIN Chin on 10/09/23 09:2 8 Results Reviewed Results Reviewed: Laboratory Last Values Hgb A1c (Clinic) 9.4 % (4.0-6.0) H 10/09/23 09:27 Assessment and Plan Assessment & Plan (1) Diabetes mellitus: Code(s): E11.9 - Type 2 diabetes mellitus without complications Qualifiers: Diabetes mellitus type: type 2 Diabetes mellitus predatory animal exterminator insulin use: without care home use Diabetes mellitus complication status: without complication Qualified Code(s): E11.9 - Type 2 diabetes mellitus without complications Plan: Poor control of diabetes. A1c is now elevated to 9.6. Ineffective medication control, poor diet and lack of exercises are the reason for the elevated blood sugars. I would like to add insulin to the regimen but patient refuses. Pioglitazone has been discontinued and Jardiance started. Compliance with medi cation, proper diet and at least some exercise was emphasized to the patient via the daughter. Orders: Orders AMB Hemoglobin A1c Today E11.9 - Type 2 diabetes mellitus without complications Coding Level of Care Code Est Pt Level 4 (70643) Diagnoses Type 2 diabetes mellitus without complication, without long-term current use of insulin E11.9 Diabetes mellitus type: type 2 Diabetes mellitus predatory animal exterminator insulin use: without care home use Diabetes mellitus complication status: without complication
== END 2023-10-09 09:59 | disposition home or self-care (01) ==
PROVIDERS: PCP Internal Medicine; Visit Provider Internal Medicine
DX: E11.9 Type 2 diabetes mellitus without complications (principal)
CPT/HCPCS: 83036; 99214

== ENCOUNTER 2024-01-10 10:01 | Outpatient (REF) | payer OTHER, SELFPAY ==
[2024-01-10 10:21] LABS: MANUAL DIFF FLAG NO
[2024-01-10 10:44] LABS: Basophils Absolute Auto 0.1 X10*3/uL (0.0-0.2); Basophils Percent Auto 0.7 % (0-2); Eosinophils Absolute Auto 0.2 X10*3/uL (0.0-0.4); Eosinophils Percent Auto 2.6 % (0-4); Hematocrit 34.2 % (37.0-47.0); Hemoglobin 11.3 g/dl (12.0-16.0); Imm Gran Abs Auto 0.02 X10*3/uL (0.00-0.03); Imm Gran Pct Auto 0.3 % (0.0-0.4); Lymphocytes Absolute Auto 2.6 X10*3/uL (1.2-4.9); Lymphocytes Percent Auto 35.4 % (20-40); Mean Corpuscular Volume 87.9 fL (80.0-98.0); Mean Platelet Volume 10.7 fL (9.4-12.3); Monocytes Absolute Auto 0.6 X10*3/uL (0.1-1.2); Monocytes Percent Auto 8.1 % (2-11); Neutrophils Absolute Auto 3.9 x10*3/uL (2.0-8.3); Neutrophils Percent Auto 52.9 % (45-73); Platelet Count 178 X10*3/uL (160-400); Red Blood Count 3.89 X10*6/uL (4.20-5.50); Red Cell Distribution Width 13.8 % (11.0-16.0); White Blood Count 7.4 X10*3/uL (4.8-10.8)
[2024-01-10 10:50] LABS: Appearance Urine Clear; Color Urine Yellow; Glucose Urine UA >=1000 mg/dL (Negative); Leukocyte Esterase Urine Small (1+) (Negative); Nitrite Urine Negative (Negative); PH 5.5 (5.0-9.0); Specific Gravity - Urine >= 1.030 (1.005-1.025); UMIC TRIGGER UA YES; UMIC TRIGGER UACC YES; Urine Blood Negative (Negative); Urine Ketones Negative (Negative); Urine Protein Negative (Neg-Trace)
[2024-01-10 10:51] LABS: Estimated Average Glucose 163 mg/dL; Hemoglobin A1c % 7.3 % (<6.0)
[2024-01-10 10:55] LABS: Bacteria Urine None Seen (None Seen); Hyaline Casts Urine 0-2 /LPF (0-2); RBC Urine 0-2 /HPF (0-2); UACC Culture Trigger YES; WBC Urine >50 /HPF (0-5)
[2024-01-10 11:22] LABS: Alanine Aminotransferase 19 U/L (0-31); Albumin Level 4.3 g/dL (3.5-5.0); Alkaline Phosphatase 43 U/L (39-117); Anion Gap 15 (12-20); Aspartate Amino Transferase 26 U/L (5-31); Bilirubin Total 0.6 mg/dL (0.0-1.0); Blood Urea Nitrogen 20 mg/dL (9-16); Calcium 9.8 mg/dL (8.4-10.2); Carbon Dioxide 24 mmol/L (22-29); Chloride 105 mmol/L (96-108); Cholesterol 155 mg/dL (<200); Estimated Glomerular Filt Rate 60; Glucose Random 194 mg/dL (60-115); HDL Cholesterol 69 mg/dL (>40); LDL Cholesterol Calculated 62 mg/dL (<100); Potassium 4.7 mmol/L (3.3-5.1); Sodium 139 mmol/L (135-145); Total Protein 7.6 g/dL (6.5-8.0); Triglycerides 122 mg/dL (<150)
[2024-01-10 11:42] LABS: Free T4 (Free Thyroxine) 1.18 ng/dL (0.71-1.85)
[2024-01-10 11:48] LABS: Folate 16.4 ng/mL (> or = 4.0); Vitamin B12 190 pg/mL (200-900)
[2024-01-14 11:59] LABS: Vitamin D 25-OH, D2 <4 ng/mL; Vitamin D 25-OH, D3 47 ng/mL; Vitamin D 25-OH, Total 47 ng/mL (30-100)
== END 2024-01-10 10:02 | disposition home or self-care (01) ==
LOC: HO.LAB 10:01
PROVIDERS: PCP Internal Medicine; Visit Provider Internal Medicine
DX: Z00.00 Encounter for general adult medical examination without abnormal findings (principal); E11.9 Type 2 diabetes mellitus without complications; E78.00 Pure hypercholesterolemia, unspecified; R33.9 Retention of urine, unspecified
CPT/HCPCS: 36415; 80053; 80061; 81001; 82306; 82607; 82746; 83036; 84439; 85025; 87086; 87147

== ENCOUNTER 2024-01-15 09:56 | Outpatient (AMB) | payer OTHER, SELFPAY ==
--- NOTE | 2024-01-15 10:05 | A.OFFPC_ITS ---
Vital Signs 01/15/24 10:07 Height 4 ft 11 in Weight 140 lb 4 oz BMI 28.3 BP 114/70 Blood Pressure Location Lt brachial Position Sitting Pulse 78 Pulse Source Pulse Oximeter Pulse Oximetry (%) 97 Oxygen Delivery Method Room Air Intake Visit Reasons: 3mth f/u Intake Note: Patient is here to follow up on DM, GERD, HTN, Hypercholesterolemia Intern Product Marketing Manager Required: Yes Intern Product Marketing Manager Name: Demar (daughter) Information Interpreted: non-clinical & clinical Air Pumper: Present Accompanied by: Daughter Allergies No Known Allergies Allergy (Verified 01/15/24 10:38) Medication List - Last Reconciled 01/15/24 by Marcellus Goldstein MD aspirin 81 mg PO DAILY 90 days betamethasone dipropionate 0.05% 1 appl topical DAILY PRN bisoprolol-hydrochlorothiazide 5-6.25 mg 1 tab PO DAILY blood sugar diagnostic ([employer] Ultra Test strips) USE TO TEST DAILY blood-glucose meter ([employer] Ultra2 Meter kit) TEST DAILY cholecalciferol (vitamin D3) 25 mcg PO DAILY empagliflozin (Jardiance) 25 mg PO DAILY lancets ([employer] Delica Lancets) TEST DAILY lisinopril 10 mg PO DAILY metformin 1,000 mg PO BID miscellaneous medical supply 1 ea miscellaneous DAILY miscellaneous medical supply 1 ea miscellaneous DAILY multivitamin 1 tab PO DAILY omega 2-gxa-azo-fish oil 60-90-500 mg (Fish Oil) 1 cap PO DAILY omeprazole 20 mg PO DAILY simvastatin 10 mg PO BEDTIME sitagliptin phosphate (Januvia) 50 mg PO DAILY 90 days vitamin B complex 1 tab PO DAILY Tobacco use date assessed: 01/15/24 Fall risk assessment: No Falls in past year Last assessed Fall Risk: 01/15/24 Dental Screening Dental Screen Date: 01/15/24 Did you have a dental visit in the last 12 months?: Yes Did you have a dental problem in the last 6 months where you did not have access to dental care?: No Was dental information given to patient?: Patient has dentist HPI 3mth f/u HPI Details 83-year-old female presents to the offic e to discuss her chronic medical conditions. Since last office visit, the daughter reports that patient is more compliant with her diet and exercise. She is having the last meal of the day by 19:00. Has been trying to avoid rice. Not checking blood sugars that frequently at home. [facility] Medical History Essential (primary) hypertension Hypercholesterolemia Diabetes mellitus GERD (gastroesophageal reflux disease) Surgical History No pertinent past surgical history Family History Father No problems noted. Mother No problems noted. Social History Housing: House Alcohol intake: never Patient Tobacco Use Status: Never used Tobacco e-Cigarette/Vaping Use: Never Used Second Hand Smoke Exposure: No service: No Current occupational status: unemployed Cognitive needs: Yes (cane/wheelchair/walker) Hearing needs: No Vision needs: No Questionnaire PHQ-9 Over the last 2 weeks, how often have you been bothered by any of the following problems? 1. Little interest or pleasure in doing things: not at all 2. Feeling down, depressed, or hopeless: not at all 3. Trouble falling or staying asleep, or sleeping too much: not at all 4. Feeling tired or having little energy: not at all 5. Poor appetite or overeating: not at all 6. Feeling bad about yourself - or that you are a failure or have let yourself or your family down: not at all 7. Trouble concentrating on things, such as reading the newspaper or watching television: not at all 8. Moving or speaking so slowly that other people could have noticed. Or the opposite - being so fidgety or restless that you have been moving around a lot more than usual: not at all 9. Thoughts that you would be better off or of hurting yourself in some way: not at all Total score: 0 Depression Screening Interpretation: Negative Depression Screening Done: Yes Source: Developed by Drs. Colin Lujan, Ingrid Stringer, Royal Mills and colleagues, with an educational harry from [employer]. Thrive Questionnaire Date Thrive assessed: 01/15/24 I am a: Patient What is your living situation today?: I have a steady place to live Within the past 12 months, did the food you bought not last and you didn't have the money to get more?: Never true Within the past 12 months, did you worry whether your food would run out before you got money to buy more?: Never true Do you have trouble paying for medicines?: No Do you have trouble getting transportation to medical appointments?: No Do you have trouble paying your heating and electricity bill?: No Do you have trouble taking care of your child, family member or friend?: No Do you have trouble with day-to-day activities such as bathing, preparing meals, shopping, managing finances, etc.?: No Are you currently unemployed and looking for a job?: No Are you interested in more education?: No Currently or been in a relationship where the following occur: no concerns reported THRIVE Score: 0 AUDIT C Alcohol Use Questionnaire (AUDIT-C) 1. How often do you have a drink containing alcohol?: Never Total Score: 0 DARLINE-7 AMB Questionnaire DARLINE-7 Date DARLINE - 7 assessed: 01/15/24 Feeling nervous, anxious, or on edge: 0 = Not at all Not being able to stop or control worryin = Not at all Worrying too much about different things: 0 = Not at all Trouble relaxin = Not at all Being so restless that it is hard to sit still: 0 = Not at all Becoming easily annoyed or irritable: 0 = Not at all Feeling afraid as if something awful might happen: 0 = Not at all Total DARLINE-7 score (0-4 normal; 5-9 mild; 10-14 moderate; 15-21 severe): 0 Source: Developed by Drs. Colin Lujan, Ingrid Stringer, Royal Mills and colleagues, with an educational harry from [employer]. Physical exam (Primary Care) Vital Signs: Last Vital Signs Pulse 78 01/15/24 10:07 BP 114/70 01/15/24 10:07 Pulse Ox 97 01/15/24 10:07 Oxygen Delivery Method Room Air 01/15/24 10:07 Care Plan Goal for BP management: Blood pressure is stable. Continue medications at same dosage. BMI result Body Mass Index 28.3 Tobacco/Smoking Status: Tobacco use Status Tobacco use date assessed 01/15/24 01/15/24 10:14 Patient Tobacco Use Status Never used Tobacco 01/15/24 10:14 e-Cigarette/Vaping Use Never Used 01/15/24 10:14 PHQ-9: PHQ-9 Score PHQ-9: Total score 0 01/15/24 10:14 Depression Screening Interpretation: Negative Thrive Assessment: Date of Thrive Assessment Date Thrive assessed 01/15/24 01/15/24 10:14 Currently or been in a relationship where the following occur: no concerns reported Advance Care Planning discussion: On file, no changes Date of discussion: 01/15/24 Who was present: Patient and daughter. Forms completed: MOLST Time spent: 1-15 minutes, on File Actual minutes spent: 5 Const General: cooperative and healthy appearing Nutritional Appearance: well nourished Orientation/consciousness: patient oriented x3 Limitations: no limitations HENMT Head: Yes normal to inspection Eyes General: appearance normal, both eyes and all related structures Neck Neck: Yes normal visual inspection Chest Chest palpation & inspection: normal palpation of entire chest wall Resp Effort & Inspection: normal respiratory effort Neuro General: patient oriented x3 Assessment and Plan Assessment & Plan (1) Diabetes mellitus: Code(s): E11.9 - Type 2 diabetes mellitus without complications Qualifiers: Diabetes mellitus type: type 2 Diabetes mellitus usp insulin use: without terminal make up operator use Diabetes mellitus complication status: without complication Qualified Code(s): E11.9 - Type 2 diabetes mellitus without complications Plan: Patient's A1c is down to 7.3. The rest of the labs are unremarkable. Continue medications at same dosage. Coding Level of Care Code Est Pt Level 4 (47117) Diagnoses Type 2 diabetes mellitus without complication, without long-term current use of insulin E11.9 Diabetes mellitus type: type 2 Diabetes mellitus usp insulin use: without usp use Diabetes mellitus complication status: without complication Additional Codes Vital Signs *Quality* - Advance Care Planning discussion: On file, no changes ([id number]) Vital Signs *Quality* - Time spent: 1-15 minutes, on File ([id number])
[2024-01-15 10:07] VITALS: BP 114/70; PULSE 78; O2SAT 97; BMI 28.3
== END 2024-01-15 10:38 | disposition home or self-care (01) ==
PROVIDERS: PCP Internal Medicine; Visit Provider Internal Medicine
DX: E11.9 Type 2 diabetes mellitus without complications (principal); E78.00 Pure hypercholesterolemia, unspecified; I10 Essential (primary) hypertension; K21.9 Gastro-esophageal reflux disease without esophagitis
CPT/HCPCS: 1123F; 99214

== ENCOUNTER 2024-04-22 09:36 | Outpatient (AMB) | payer OTHER, SELFPAY ==
--- NOTE | 2024-04-22 09:42 | A.OFFPC_ITS ---
Vital Signs 04/22/24 09:44 Height 4 ft 11 in Weight 132 lb 2 oz BMI 26.7 BP 140/64 H Blood Pressure Location Rt brachial Position Sitting Pulse 74 Pulse Source Pulse Oximeter Pulse Oximetry (%) 98 Oxygen Delivery Method Room Air Intake Visit Reasons: 3mth f/u Intake Note: Patient is here to follow up on DM, HTN, Hypercholesterolemia. 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 Compliant with medications and reporting no side effects. Continues to have intermittent pain in the left knee. Patient has not been very compliant with diet recently. Usually homebound and goes out with family members. No difficulty in urination. [facility] Medical History Essential (primary) hypertension Hypercholesterolemia Diabetes mellitus GERD (gastroesophageal reflux disease) Surgical History No pertinent past surgical history Family History Father No problems noted. Mother No problems noted. Social History Housing: House Alcohol intake: never Patient Tobacco Use Status: Never used Tobacco e-Cigarette/Vaping Use: Never Used Second Hand Smoke Exposure: No service: No Current occupational status: unemployed Cognitive needs: Yes (cane/wheelchair/walker) Hearing needs: No Vision needs: No Questionnaire Thrive Questionnaire Date Thrive assessed: 01/15/24 DARLINE-7 AMB Questionnaire DARLINE-7 Date DARLINE - 7 assessed: 01/15/24 Source: Developed by Drs. Colin Lujan, Ingrid Stringer, Royal Mills and colleagues, with an educational harry from [employer]. Physical exam (Primary Care) Vital Signs: Last Vital Signs Pulse 74 06/13/24 09:44 BP 140/64 H 04/22/24 09:44 Pulse Ox 98 04/22/24 09:44 Oxygen Delivery Method Room Air 04/22/24 09:44 BMI result Body Mass Index 26.7 Tobacco/Smoking Status: Tobacco use Status Tobacco use date assessed 04/22/24 04/22/24 10:03 Patient Tobacco Use Status Never used Tobacco 04/22/24 10:03 e-Cigarette/Vaping Use Never Used 04/22/24 10:03 Thrive Assessment: Date of Thrive Assessment Date Thrive assessed 01/15/24 04/22/24 10:03 Const General: cooperative and healthy appearing Nutritional Appearance: well nourished Orientation/consciousness: patient oriented x3 Limitations: no limitations HENMT Head: Yes normal to inspection Eyes General: appearance normal, both eyes and all related structures Neck Neck: Yes normal visual inspection Chest Chest palpation & inspection: normal palpation of entire chest wall Resp Effort & Inspection: normal respiratory effort Neuro General: patient oriented x3 Results AMB Hemoglobin A1c AMB Hemoglobin A1c 7.7 % Last Edit by DUSTIN Srivastava on 04/22/24 10:10 Results Reviewed Results Reviewed: Laboratory Last Values Hgb A1c (Clinic) 7.7 % (4.0-6.0) H 04/22/24 09:42 Assessment and Plan Assessment & Plan (1) Diabetes mellitus: Code(s): E11.9 - Type 2 diabetes mellitus without complications Qualifiers: Diabetes mellitus type: type 2 Diabetes mellitus superintendent marine oil terminal insulin use: without skilled nursing use Diabetes mellitus complication status: without complication Qualified Code(s): E11.9 - Type 2 diabetes mellitus without complications Plan: A1c is 7.7. Patient is elderly and frail. Current A1c is satisfactory. Medications to be continued at the same dosage. (2) Hypercholesterolemia: Code(s): E78.00 - Pure hypercholesterolemia, unspecified Plan: Continue medications at same dosage. (3) Essential (primary) hypertension: Code(s): I10 - Essential (primary) hypertension Plan: Blood pressure is in range. Continue medications at same dosage. Orders: Orders AMB Hemoglobin A1c Today E11.9 - Type 2 diabetes mellitus without complications Complete Blood Count no Diff 2 Months E11.9 - Type 2 diabetes mellitus without complications, E78.00 - Pure hypercholesterolemia, unspecified, I10 - Essential (primary) hypertension Basic Metabolic Panel 2 Months E11.9 - Type 2 diabetes mellitus without complications, E78.00 - Pure hypercholesterolemia, unspecified, I10 - Essential (primary) hypertension Lipid Panel 2 Months E11.9 - Type 2 diabetes mellitus without complications, E78.00 - Pure hypercholesterolemia, unspecified, I10 - Essential (primary) hypertension Liver Panel 2 Months E11.9 - Type 2 diabetes mellitus without complications, E78.00 - Pure hypercholesterolemia, unspecified, I10 - Essential (primary) hypertension UA and rflx microscopic 2 Months E11.9 - Type 2 diabetes mellitus without complications, E78.00 - Pure hypercholesterolemia, unspecified, I10 - Essential (primary) hypertension Medications: Changed From blood-glucose meter ([employer]OS [employer] Ultra2 Meter kit) TEST DAILY 1 ea 0RF E11.9 - Type 2 diabetes mellitus without complications To blood-glucose meter TEST DAILY 1 ea 0RF E11.9 - Type 2 diabetes mellitus without complications From lancets (The JetstreamTouch Delica Lancets) TEST DAILY 100 ea 0RF E11.9 - Type 2 diabetes mellitus without complications To lancets TEST DAILY 100 ea 0RF E11.9 - Type 2 diabetes mellitus without complications Refilled blood sugar diagnostic (The [employer] Ultra Test strips) USE TO TEST DAILY 100 strips 4RF E11.9 - Type 2 diabetes mellitus without complications Coding Level of Care Code Est Pt Level 4 (55249) Complex EM visit Add On G2211 Diagnoses Type 2 diabetes mellitus without complication, without long-term current use of insulin E11.9 Diabetes mellitus type: type 2 Diabetes mellitus skilled nursing insulin use: without superintendent marine oil terminal use Diabetes mellitus complication status: without complication Hypercholesterolemia E78.00 Essential (primary) hypertension I10
[2024-04-22 09:44] VITALS: BP 140/64; PULSE 74; O2SAT 98; BMI 26.7
== END 2024-04-22 10:54 | disposition home or self-care (01) ==
PROVIDERS: PCP Internal Medicine; Visit Provider Internal Medicine
DX: E11.9 Type 2 diabetes mellitus without complications (principal); E78.00 Pure hypercholesterolemia, unspecified; I10 Essential (primary) hypertension
CPT/HCPCS: 83036; 99214; G2211

== ENCOUNTER 2024-07-31 09:41 | Outpatient (REF) | payer OTHER, SELFPAY ==
[2024-07-31 10:10] LABS: Hematocrit 34.8 % (37.0-47.0); Hemoglobin 11.2 g/dl (12.0-16.0); Mean Corpuscular HGB Conc 32.2 g/dl (31.0-35.0); Mean Corpuscular Hemoglobin 28.4 pg (27.0-33.0); Mean Corpuscular Volume 88.1 fL (80.0-98.0); Mean Platelet Volume 10.6 fL (9.4-12.3); Platelet Count 187 X10*3/uL (160-400); Red Blood Count 3.95 X10*6/uL (4.20-5.50); Red Cell Distribution Width 13.5 % (11.0-16.0); White Blood Count 7.2 X10*3/uL (4.8-10.8)
[2024-07-31 10:19] LABS: Estimated Average Glucose 171 mg/dL; Hemoglobin A1c % 7.6 % (<6.0)
[2024-07-31 10:35] LABS: Appearance Urine Clear; Color Urine Yellow; Glucose Urine UA >=1000 mg/dL (Negative); Leukocyte Esterase Urine Negative (Negative); Nitrite Urine Negative (Negative); PH 5.5 (5.0-9.0); Specific Gravity - Urine >= 1.030 (1.005-1.025); UMIC TRIGGER UA YES; Urine Blood Negative (Negative); Urine Ketones Negative (Negative); Urine Protein Negative (Neg-Trace)
[2024-07-31 10:49] LABS: Bacteria Urine None Seen (None Seen); Hyaline Casts Urine 0-2 /LPF (0-2); RBC Urine 0-2 /HPF (0-2); Squamous Epithelial Cell Urine 0-2 /HPF (0-2); WBC Urine 0-5 /HPF (0-5)
[2024-07-31 10:58] LABS: Alanine Aminotransferase 17 U/L (0-31); Albumin Level 4.4 g/dL (3.5-5.0); Alkaline Phosphatase 53 U/L (39-117); Anion Gap 14 (12-20); Aspartate Amino Transferase 26 U/L (5-31); Bilirubin Direct 0.3 mg/dL (0.0-0.5); Bilirubin Total 0.6 mg/dL (0.0-1.0); Blood Urea Nitrogen 24 mg/dL (9-16); Calcium 9.7 mg/dL (8.4-10.2); Carbon Dioxide 24 mmol/L (22-29); Chloride 104 mmol/L (96-108); Cholesterol 159 mg/dL (<200); Estimated Glomerular Filt Rate 53; Glucose Random 195 mg/dL (60-115); HDL Cholesterol 74 mg/dL (>40); LDL Cholesterol Calculated 61 mg/dL (<100); Potassium 4.4 mmol/L (3.3-5.1); Sodium 138 mmol/L (135-145); Total Protein 7.8 g/dL (6.5-8.0); Triglycerides 121 mg/dL (<150)
[2024-07-31 11:12] LABS: Thyroid Stimulating Hormone 0.72 uIU/mL (0.32-4.0)
== END 2024-07-31 09:42 | disposition home or self-care (01) ==
LOC: HO.LAB 09:41
PROVIDERS: PCP Internal Medicine; Visit Provider Internal Medicine
DX: E11.9 Type 2 diabetes mellitus without complications (principal); E78.00 Pure hypercholesterolemia, unspecified; I10 Essential (primary) hypertension
CPT/HCPCS: 36415; 80048; 80061; 80076; 81001; 83036; 84443; 85027

== ENCOUNTER 2024-08-05 09:09 | Outpatient (AMB) | payer OTHER, SELFPAY ==
[2024-08-05 09:11] VITALS: BP 136/72; PULSE 71; O2SAT 97; BMI 26.5
--- NOTE | 2024-08-05 09:11 | MHC.PC.OV ---
Vital Signs 08/05/24 09:11 Height 4 ft 11 in Weight 131 lb BMI 26.5 BP 136/72 Blood Pressure Location Lt brachial Position Sitting Pulse 71 Pulse Source Pulse Oximeter Pulse Oximetry (%) 97 Oxygen Delivery Method Room Air Intake Visit Reasons: 3mth f/u Allergies No Known Allergies Allergy (Verified 08/06/24 10:31) Medication List - Last Reconciled 08/06/24 by Marcellus Goldstein MD aspirin 81 mg PO DAILY 90 days betamethasone dipropionate 0.05% 1 appl topical DAILY PRN bisoprolol-hydrochlorothiazide 5-6.25 mg 1 tab PO DAILY blood sugar diagnostic ([employer] Ultra Test strips) USE TO TEST DAILY blood-glucose meter TEST DAILY cholecalciferol (vitamin D3) 25 mcg PO DAILY empagliflozin (Jardiance) 25 mg PO DAILY lancets TEST DAILY lisinopril 10 mg PO DAILY metformin 1,000 mg PO BID miscellaneous medical supply 1 ea miscellaneous DAILY miscellaneous medical supply 1 ea miscellaneous DAILY multivitamin 1 tab PO DAILY omega 9-kyn-aev-fish oil 60-90-500 mg (Fish Oil) 1 cap PO DAILY omeprazole 20 mg PO DAILY simvastatin 10 mg PO BEDTIME sitagliptin phosphate (Januvia) 50 mg PO DAILY 90 days vitamin B complex 1 tab PO DAILY Tobacco use date assessed: 04/22/24 Fall risk assessment: No Falls in past year Last assessed Fall Risk: 08/05/24 Dental Screening Dental Screen Date: 01/15/24 HPI 3mth f/u HPI Details 83-year-old female presents to the office to discuss her chronic medical conditions. She is accompanied by her daughter who is translating for her. Patient is at baseline state of health. Continues to have nonspecific pain in the right and left knee. X-rays done a few years ago confirmed osteoarthritis. She does have some swelling in both her ankles. Able to ambulate without assistance. Occasionally she has a sharp pain in the chest when she takes a deep breath. Not related to exertion or associated with diaphoresis or shortness of breath. Compliant with all medications. Does not check blood sugars at home frequently. Requesting a refill on few of her medications. [facility] Medical History Essential (primary) hypertension Hypercholesterolemia Diabetes mellitus GERD (gastroesophageal reflux disease) Surgical History No pertinent past surgical history Family History Father No problems noted. Mother No problems noted. Social History Housing: House Alcohol intake: never Patient Tobacco Use Status: Never used Tobacco Tobacco use type: Cigarette e-Cigarette/Vaping Use: Never Used Second Hand Smoke Exposure: No service: No Current occupational status: unemployed Cognitive needs: Yes (cane/wheelchair/walker) Hearing needs: No Vision needs: No Questionnaire PHQ-9 Over the last 2 weeks, how often have you been bothered by any of the following problems? 1. Little interest or pleasure in doing things: not at all 2. Feeling down, depressed, or hopeless: not at all 3. Trouble falling or staying asleep, or sleeping too much: not at all 4. Feeling tired or having little energy: not at all 5. Poor appetite or overeating: not at all 6. Feeling bad about yourself - or that you are a failure or have let yourself or your family down: not at all 7. Trouble concentrating on things, such as reading the newspaper or watching television: not at all 8. Moving or speaking so slowly that other people could have noticed. Or the opposite - being so fidgety or restless that you have been moving around a lot more than usual: not at all 9. Thoughts that you would be better off or of hurting yourself in some way: not at all Total score: 0 Depression Screening Interpretation: Negative Depression Screening Done: Yes Source: Developed by Drs. Colin Lujan, Royal Campos and colleagues, with an educational harry from [employer]. Thrive Questionnaire Date Thrive assessed: 01/15/24 AUDIT C Alcohol Use Questionnaire (AUDIT-C) 1. How often do you have a drink containing alcohol?: Never Total Score: 0 DARLINE-7 AMB Questionnaire DARLINE-7 Date DARLINE - 7 assessed: 01/15/24 Source: Developed by Drs. Colin LIngrid Arellano, Royal Mills and colleagues, with an educational harry from [employer]. Physical exam (Primary Care) Vital Signs: Last Vital Signs Pulse 71 08/05/24 09:11 BP 136/72 08/05/24 09:11 Pulse Ox 97 08/05/24 09:11 Oxygen Delivery Method Room Air 08/05/24 09:11 BMI result Body Mass Index 26.5 Tobacco/Smoking Status: Tobacco use Status Tobacco use date assessed 04/22/24 08/05/24 09:13 Patient Tobacco Use Status Never used Tobacco 08/05/24 09:13 Tobacco use type Cigarette 08/05/24 09:19 e-Cigarette/Vaping Use Never Used 08/05/24 09:13 PHQ-9: PHQ-9 Score PHQ-9: Total score 0 08/05/24 09:47 Depression Screening Interpretation: Negative Thrive Assessment: Date of Thrive Assessment Date Thrive assessed 01/15/24 08/05/24 09:13 Const General: cooperative and healthy appearing Nutritional Appearance: well nourished Orientation/consciousness: patient oriented x3 Limitations: no limitations HENMT Head: Yes normal to inspection Eyes General: appearance normal, both eyes and all related structures Neck Neck: Yes normal visual inspection Chest Chest palpation & inspection: normal palpation of entire chest wall Resp Effort & Inspection: normal respiratory effort Neuro General: patient oriented x3 Extrem Other: Knee; Bilateral: Crepitus. Brace in place Assessment and Plan Assessment & Plan (1) Bilateral knee pain: Code(s): M25.561 - Pain in right knee; M25.562 - Pain in left knee Plan: Patient has extensive OA. Advised her to continue Tylenol. (2) Essential (primary) hypertension: Code(s): I10 - Essential (primary) hypertension Plan: BP in range. Continue current medications. (3) Diabetes mellitus: Code(s): E11.9 - Type 2 diabetes mellitus without complications Qualifiers: Diabetes mellitus type: type 2 Diabetes mellitus terminal makeup operator insulin use: without terminal makeup operator use Diabetes mellitus complication status: without complication Qualified Code(s): E11.9 - Type 2 diabetes mellitus without complications Plan: A1c in range. Continue current medications. (4) Chest pain: Code(s): R07.9 - Chest pain, unspecified Plan Physical exam is unremarkable. XRay has been ordered. Will call with the results Orders: Orders XR chest 2V 08/05/24 R05.9 - Cough, unspecified Medications: Refilled bisoprolol-hydrochlorothiazide 5-6.25 mg 1 tab PO DAILY 90 tabs 1RF betamethasone dipropionate 0.05% 1 appl topical DAILY PRN 45 grams 0RF skin irritation lancets TEST DAILY 100 ea 0RF E11.9 - Type 2 diabetes mellitus without complications Coding Level of Care Code Est Pt Level 4 (86769) Complex EM visit Add On G2211 Diagnoses Bilateral knee pain M25.561; M25.562 Essential (primary) hypertension I10 Type 2 diabetes mellitus without complication, without long-term current use of insulin E11.9 Diabetes mellitus type: type 2 Diabetes mellitus snf insulin use: without terminal makeup operator use Diabetes mellitus complication status: without complication Chest pain R07.9
== END 2024-08-05 09:45 | disposition home or self-care (01) ==
PROVIDERS: PCP Internal Medicine; Visit Provider Internal Medicine
DX: M25.561 Pain in right knee (principal); M25.562 Pain in left knee; I10 Essential (primary) hypertension; E11.9 Type 2 diabetes mellitus without complications; R07.9 Chest pain, unspecified

== ENCOUNTER → 2024-08-05 09:09 | Outpatient (BNVA) | payer OTHER, SELFPAY | PROVIDERS: PCP Internal Medicine; Visit Provider Internal Medicine | DX: R07.9 Chest pain, unspecified (principal); I10 Essential (primary) hypertension; E11.9 Type 2 diabetes mellitus without complications; M25.561 Pain in right knee; M25.562 Pain in left knee | CPT/HCPCS: 99212 ==

== ENCOUNTER 2024-08-07 09:58 | Outpatient (REF) | payer OTHER, SELFPAY ==
--- NOTE | ~2024-08-07 | XR_ITS ---
EXAMINATION: XR CHEST CLINICAL INFORMATION: R05.9 - Cough, unspecified COMPARISON: X-ray dated April 04, 2022 TECHNIQUE: 2 views of the chest were obtained. FINDINGS: Submitted for interpretation on October 15, 2024. No consolidation, pleural effusion or pneumothorax. Pulmonary reticular pattern. Cardiomediastinal silhouette demonstrates calcified plaque aortic arch. Multilevel thoracolumbar spondylosis and a shaped curvature of the thoracic spine. Degenerative changes in the shoulders. Osteopenia versus osteoporosis. XR/XR chest 2V IMPRESSION: Consider chronic interstitial lung disease. Electronically signed by: Estevan Daniels MD 10/15/2024 03:59 PM EST
== END 2024-08-07 09:59 | disposition home or self-care (01) ==
LOC: HO.XRAY 09:58
PROVIDERS: PCP Internal Medicine; Visit Provider Internal Medicine
DX: R05.9 Cough, unspecified (principal)
CPT/HCPCS: 71046

== ENCOUNTER → 2024-08-07 10:04 | Outpatient (BNV) | payer OTHER, SELFPAY | PROVIDERS: PCP Internal Medicine; Visit Provider Radiology Diagnostic Radiology | DX: R05.9 Cough, unspecified (principal) | CPT/HCPCS: 71046 ==

== ENCOUNTER 2024-11-15 09:56 | Outpatient (REF) | payer OTHER, SELFPAY ==
[2024-11-15 10:48] LABS: Hematocrit 35.2 % (37.0-47.0); Hemoglobin 11.2 g/dl (12.0-16.0); Mean Corpuscular HGB Conc 31.8 g/dl (31.0-35.0); Mean Corpuscular Hemoglobin 28.4 pg (27.0-33.0); Mean Corpuscular Volume 89.1 fL (80.0-98.0); Mean Platelet Volume 10.4 fL (9.4-12.3); Platelet Count 173 X10*3/uL (160-400); Red Blood Count 3.95 X10*6/uL (4.20-5.50); Red Cell Distribution Width 13.3 % (11.0-16.0); White Blood Count 7.4 X10*3/uL (4.8-10.8)
[2024-11-15 11:05] LABS: Appearance Urine Clear; Color Urine Yellow; Glucose Urine UA >=1000 mg/dL (Negative); Leukocyte Esterase Urine Negative (Negative); Nitrite Urine Negative (Negative); Specific Gravity - Urine 1.025 (1.005-1.025); UMIC TRIGGER UA YES; Urine Blood Negative (Negative); Urine Ketones Negative (Negative); Urine Protein Negative (Neg-Trace)
[2024-11-15 11:12] LABS: Bacteria Urine None Seen (None Seen); Hyaline Casts Urine 0-2 /LPF (0-2); RBC Urine 0-2 /HPF (0-2); Squamous Epithelial Cell Urine 0-2 /HPF (0-2); WBC Urine 0-5 /HPF (0-5)
[2024-11-15 11:37] LABS: Alanine Aminotransferase 23 U/L (0-31); Albumin Level 4.3 g/dL (3.5-5.0); Alkaline Phosphatase 47 U/L (39-117); Anion Gap 13 (12-20); Aspartate Amino Transferase 26 U/L (5-31); Bilirubin Direct 0.2 mg/dL (0.0-0.5); Bilirubin Total 0.6 mg/dL (0.0-1.0); Blood Urea Nitrogen 20 mg/dL (9-16); Carbon Dioxide 24 mmol/L (22-29); Chloride 107 mmol/L (96-108); Cholesterol 164 mg/dL (<200); Estimated Glomerular Filt Rate > 60; Glucose Random 187 mg/dL (60-115); HDL Cholesterol 77 mg/dL (>40); LDL Cholesterol Calculated 60 mg/dL (<100); Potassium 5.1 mmol/L (3.3-5.1); Sodium 139 mmol/L (135-145); Total Protein 7.6 g/dL (6.5-8.0); Triglycerides 135 mg/dL (<150)
== END 2024-11-15 09:57 | disposition home or self-care (01) ==
LOC: HO.LAB 09:56
PROVIDERS: PCP Internal Medicine; Visit Provider Internal Medicine
DX: E11.9 Type 2 diabetes mellitus without complications (principal); I10 Essential (primary) hypertension; E78.00 Pure hypercholesterolemia, unspecified
CPT/HCPCS: 36415; 80048; 80061; 80076; 81001; 81003; 85027

== ENCOUNTER 2024-11-17 09:03 | Outpatient (AMB) | payer OTHER, SELFPAY ==
--- NOTE | 2024-11-17 09:07 | MHC.PC.OV ---
Vital Signs 11/17/24 09:08 Height 4 ft 11 in Weight 132 lb 2 oz BMI 26.7 BP 100/66 Blood Pressure Location Lt brachial Position Sitting Pulse 63 Pulse Source Pulse Oximeter Pulse Oximetry (%) 99 Oxygen Delivery Method Room Air Intake Visit Reasons: DM Intake Note: Patient is here to follow up on DM. Accounts Officer Required: Yes Accounts Officer Name: Daughter Information Interpreted: non-clinical & clinical Acidity Tester: Present Accompanied by: Daughter Allergies No Known Allergies Allergy (Verified 11/17/24 09:45) Medication List - Last Reconciled 11/17/24 by Marcellus Goldstein MD aspirin 81 mg PO DAILY 90 days betamethasone dipropionate 0.05% 1 appl topical DAILY PRN bisoprolol-hydrochlorothiazide 5-6.25 mg 1 tab PO DAILY blood sugar diagnostic ([employer] Ultra Test strips) USE TO TEST DAILY blood-glucose meter TEST DAILY cholecalciferol (vitamin D3) 25 mcg PO DAILY diaper,brief,adult,disposable As directed- size medium empagliflozin (Jardiance) 25 mg PO DAILY lancets TEST DAILY lisinopril 10 mg PO DAILY metformin 1,000 mg PO BID miscellaneous medical supply 1 ea miscellaneous DAILY miscellaneous medical supply 1 ea miscellaneous DAILY multivitamin 1 tab PO DAILY omega 2-lgu-vre-fish oil 60-90-500 mg (Fish Oil) 1 cap PO DAILY omeprazole 20 mg PO DAILY simvastatin 10 mg PO BEDTIME sitagliptin phosphate (Januvia) 50 mg PO DAILY 90 days vitamin B complex 1 tab PO DAILY Tobacco use date assessed: 11/17/24 Fall risk assessment: No Falls in past year Last assessed Fall Risk: 11/17/24 Dental Screening Dental Screen Date: 11/17/24 Did you have a dental visit in the last 12 months?: Yes Did you have a dental problem in the last 6 months where you did not have access to dental care?: No Was dental information given to patient?: Patient has dentist [facility] Medical History Essential (primary) hypertension Hypercholesterolemia Diabetes mellitus GERD (gastroesophageal reflux disease) Surgical History (Updated 11/17/24 @ 09:17 by DUSTIN Srivastava) History of cataract surgery Family History Father No problems noted. Mother No problems noted. Social History Housing: House Alcohol intake: never Patient Tobacco Use Status: Never used Tobacco Tobacco use type: Cigarette e-Cigarette/Vaping Use: Never Used Second Hand Smoke Exposure: No service: No Current occupational status: unemployed Cognitive needs: Yes (cane/wheelchair/walker) Hearing needs: No Vision needs: No Questionnaire PHQ-9 Over the last 2 weeks, how often have you been bothered by any of the following problems? 1. Little interest or pleasure in doing things: not at all 2. Feeling down, depressed, or hopeless: not at all 3. Trouble falling or staying asleep, or sleeping too much: not at all 4. Feeling tired or having little energy: not at all 5. Poor appetite or overeating: not at all 6. Feeling bad about yourself - or that you are a failure or have let yourself or your family down: not at all 7. Trouble concentrating on things, such as reading the newspaper or watching television: not at all 8. Moving or speaking so slowly that other people could have noticed. Or the opposite - being so fidgety or restless that you have been moving around a lot more than usual: not at all 9. Thoughts that you would be better off or of hurting yourself in some way: not at all Total score: 0 Depression Screening Interpretation: Negative Depression Screening Done: Yes Source: Developed by Drs. Colin Lujan, Ingrid Stringer, Royal Mills and colleagues, with an educational harry from [employer]. Thrive Questionnaire Date Thrive assessed: 11/17/24 I am a: Patient What is your living situation today?: I have a steady place to live Within the past 12 months, did the food you bought not last and you didn't have the money to get more?: Never true Within the past 12 months, did you worry whether your food would run out before you got money to buy more?: Never true Do you have trouble paying for medicines?: No Do you have trouble getting transportation to medical appointments?: No Do you have trouble paying your heating and electricity bill?: No Do you have trouble taking care of your child, family member or friend?: No Do you have trouble with day-to-day activities such as bathing, preparing meals, shopping, managing finances, etc.?: No Are you currently unemployed and looking for a job?: No Are you interested in more education?: No Please select the resources that you would like help with: None Currently or been in a relationship where the following occur: No concerns reported THRIVE Score: 0 AUDIT C Alcohol Use Questionnaire (AUDIT-C) 1. How often do you have a drink containing alcohol?: Never Total Score: 0 DARLINE-7 AMB Questionnaire DARLINE-7 Date DARLINE - 7 assessed: 11/17/24 Feeling nervous, anxious, or on edge: 0 = Not at all Not being able to stop or control worryin = Not at all Worrying too much about different things: 0 = Not at all Trouble relaxin = Not at all Being so restless that it is hard to sit still: 0 = Not at all Becoming easily annoyed or irritable: 0 = Not at all Feeling afraid as if something awful might happen: 0 = Not at all Total DARLINE-7 score (0-4 normal; 5-9 mild; 10-14 moderate; 15-21 severe): 0 Source: Developed by Drs. Colin Lujan, Ingrid Stringer, [place] and colleagues, with an educational harry from [employer]. Physical exam (Primary Care) Vital Signs: Last Vital Signs Pulse 63 11/17/24 09:08 BP 100/66 11/17/24 09:08 Pulse Ox 99 11/17/24 09:08 Oxygen Delivery Method Room Air 11/17/24 09:08 Care Plan Goal for BP management: BP in range. Continue current medications at same dosage. BMI result Body Mass Index 26.7 Tobacco/Smoking Status: Tobacco use Status Tobacco use date assessed 11/17/24 11/17/24 09:19 Patient Tobacco Use Status Never used Tobacco 11/17/24 09:19 Tobacco use type Cigarette 11/17/24 09:19 e-Cigarette/Vaping Use Never Used 11/17/24 09:19 PHQ-9: PHQ-9 Score PHQ-9: Total score 0 11/17/24 09:22 Depression Screening Interpretation: Negative Thrive Assessment: Date of Thrive Assessment Date Thrive assessed 11/17/24 11/17/24 09:19 Currently or been in a relationship where the following occur: No concerns reported Advance Care Planning discussion: Exists, not on file Date of discussion: 11/17/24 Who was present: Daughter Forms completed: Health Care Proxy and [facility]OL[facility] Actual minutes spent: 5 Results AMB Hemoglobin A1c AMB Hemoglobin A1c 7.6 % Last Edit by DUSTIN Srivastava on 11/17/24 09:23 Results Reviewed Results Reviewed: Laboratory Last Values Hgb A1c (Clinic) 7.6 % (4.0-6.0) H 11/17/24 09:06 Coding Level of Care Code Est Pt Level 4 (18398) Complex EM visit Add On G2211 Diagnoses Essential (primary) hypertension I10 Hypercholesterolemia E78.00 Type 2 diabetes mellitus without complication, without long-term current use of insulin E11.9 Diabetes mellitus type: type 2 Diabetes mellitus fpc insulin use: without director long term care use Diabetes mellitus complication status: without complication Osteoarthritis of knees, bilateral M17.0 Additional Codes Vital Signs *Quality* - Advance Care Planning discussion: Exists, not on file ([id number]) Assessment & Plan Assessment & Plan (1) Essential (primary) hypertension: Code(s): I10 - Essential (primary) hypertension Category: Medical Plan: BP in range. Continue medications at same dosage. (2) Hypercholesterolemia: Code(s): E78.00 - Pure hypercholesterolemia, unspecified Category: Medical Plan: In range. (3) Diabetes mellitus: Code(s): E11.9 - Type 2 diabetes mellitus without complications Category: Medical Qualifiers: Diabetes mellitus type: type 2 Diabetes mellitus director long term care insulin use: without director long term care use Diabetes mellitus complication status: without complication Qualified Code(s): E11.9 - Type 2 diabetes mellitus without complications Plan: Pt has elevated Blood Sugars despite Metformin and Januvia. Due to her advance age and frail health, tight control of DM is not being attempted. (4) Osteoarthritis of knees, bilateral: Code(s): M17.0 - Bilateral primary osteoarthritis of knee Category: Medical Plan: Condition is stable. Plan History of Present Illness The patient is an 83-year-old female presenting for follow-up regarding her Type 2 Diabetes Mellitus. The blood glucose levels have been reported as slightly elevated at approximately 150 mg/dL, despite current management with Metformin and Sitagliptin. It was mentioned that dietary habits, such as a late lunch, might have influenced these readings. To date, lifestyle modifications including dietary adjustments have been attempted, but insulin therapy was proposed as an alternative should current interventions prove insufficient, though considered manageable at present. Furthermore, the patient has reported experiencing nightly xerostomia, which remains unaddressed beyond increased water intake. In addition, there are noted concerns of short-term memory impairment, where the patient occasionally forgets recent events but remains oriented to familiar persons and media content. This memory decline does not impede her daily routine to a significant extent. Social History - The patient does not engage in cooking and requires supervision for bathing; however, she can dress with assistance. - She is capable of independently entering a vehicle and does perform limited tasks such as watching television and limited communication based on short memory and language abilities. - She resides with her brother, recognizing and communicating with him while understanding media content in her rampart language. Review of Systems - Head and Neck: Reports dry throat at night. - Neurological: Reports occasional forgetfulness. Physical Exam General: Appearance normal, both eyes and all related structures Nutritional Appearance: Well nourished Orientation/consciousness: Patient oriented x3, but sometimes short memory Limitations: Some limitations; needs assistance with bathing and dressing, cannot cook, needs help with writing checks Head: Normal to inspection Neck: Normal visual inspection Chest: Normal palpation of entire chest wall Respiratory: Normal respiratory effort Neurology: Patient oriented x3, but sometimes short memory Results - Labs: Elevated blood glucose levels (~150 mg/dL) Plan - Continue current diabetes medication regimen; consider insulin if glucose levels remain uncontrolled. - Advise increased hydration for xerostomia; monitor symptoms. - Monitor for progression in short-term memory, provide cognitive support as needed. - Schedule follow-up in six months or sooner if symptoms deteriorate. Patient was informed and verbally consented to the use of an ambient scribe for clinic note documentation during this visit. Discussion Notes During the visit, we discussed the management of the patient's elevated blood glucose levels and the potential shift towards insulin therapy if dietary adjustments fail. The patient was counseled on increasing water intake to manage the dry throat experienced each night. We agreed to monitor her memory impairment for any signs of progression. The patient consented to maintain the current medication regimen and acknowledged the importance of follow-up in future assessments. No immediate changes were planned, and we scheduled to review her condition again in six months. Patient Instructions - Continue taking Metformin and Sitagliptin as prescribed. - Drink plenty of water, especially before bed, to manage dry throat. - Stay vigilant for any changes in memory or condition and report them. - Set appointment for follow-up in six months or contact sooner if needed. Orders: Orders AMB Hemoglobin A1c Today E11.9 - Type 2 diabetes mellitus without complications
[2024-11-17 09:08] VITALS: BP 100/66; PULSE 63; O2SAT 99; BMI 26.7
== END 2024-11-17 09:44 | disposition home or self-care (01) ==
PROVIDERS: PCP Internal Medicine; Visit Provider Internal Medicine
DX: I10 Essential (primary) hypertension (principal); E78.00 Pure hypercholesterolemia, unspecified; E11.9 Type 2 diabetes mellitus without complications; M17.0 Bilateral primary osteoarthritis of knee; Z00.00 Encounter for general adult medical examination without abnormal findings

== ENCOUNTER → 2024-11-17 09:03 | Outpatient (BNVA) | payer OTHER, SELFPAY | PROVIDERS: PCP Internal Medicine; Visit Provider Internal Medicine | DX: I10 Essential (primary) hypertension (principal); E78.00 Pure hypercholesterolemia, unspecified; E11.9 Type 2 diabetes mellitus without complications; M17.0 Bilateral primary osteoarthritis of knee | CPT/HCPCS: 83036; 99212 ==

== ENCOUNTER 2025-05-11 09:31 | Outpatient (REF) | payer OTHER, SELFPAY ==
[2025-05-11 10:33] LABS: Appearance Urine Clear; Glucose Urine UA >=1000 mg/dL (Negative); PH 5.5 (5.0-9.0); Specific Gravity - Urine 1.025 (1.005-1.025); UMIC TRIGGER UA YES
[2025-05-11 10:36] LABS: Hematocrit 34.8 % (37.0-47.0); Hemoglobin 11.6 g/dl (12.0-16.0); Mean Corpuscular HGB Conc 33.3 g/dl (31.0-35.0); Mean Corpuscular Hemoglobin 29.2 pg (27.0-33.0); Mean Corpuscular Volume 87.7 fL (80.0-98.0); NRBC Abs Auto 0.000 X10*3/uL (0.0-0.012); NRBC Pct Auto 0.0 /100WBC (0.0-0.2); Platelet Count 180 X10*3/uL (160-400); Red Blood Count 3.97 X10*6/uL (4.20-5.50); White Blood Count 6.6 X10*3/uL (4.8-10.8)
[2025-05-11 10:43] LABS: Hemoglobin A1C 173.1103 umol/L; Total Hemoglobin (HGBA1C) 3081.7788 umol/L
[2025-05-11 11:04] LABS: Microalbum/Creatinine Ratio Ur 22.7 ug/mg cr (<30)
[2025-05-11 11:09] LABS: Alanine Aminotransferase 22 U/L (0-31); Albumin Level 4.5 g/dL (3.5-5.0); Alkaline Phosphatase 45 U/L (39-117); Anion Gap 13 (12-20); Aspartate Amino Transferase 30 U/L (5-31); Blood Urea Nitrogen 23 mg/dL (9-16); Calcium 9.9 mg/dL (8.4-10.2); Carbon Dioxide 26 mmol/L (22-29); Chloride 105 mmol/L (96-108); Cholesterol 169 mg/dL (<200); Estimated Glomerular Filt Rate > 60; HDL Cholesterol 76 mg/dL (>40); Potassium 5.4 mmol/L (3.3-5.1); Sodium 139 mmol/L (135-145); Total Protein 7.5 g/dL (6.5-8.0); Triglycerides 148 mg/dL (<150)
[2025-05-11 11:26] LABS: Thyroid Stimulating Hormone 0.88 uIU/mL (0.32-4.0)
== END 2025-05-11 09:32 | disposition home or self-care (01) ==
LOC: HO.LAB 09:31
PROVIDERS: PCP Internal Medicine; Visit Provider Internal Medicine
DX: I10 Essential (primary) hypertension (principal); E78.00 Pure hypercholesterolemia, unspecified
CPT/HCPCS: 36415; 80048; 80061; 80076; 81001; 82043; 82570; 83036; 84443; 85027

== ENCOUNTER 2025-05-19 09:02 | Outpatient (AMB) | payer OTHER, SELFPAY ==
--- NOTE | 2025-05-19 09:19 | MHC.PC.OV ---
Vital Signs 05/19/25 09:20 Height 4 ft 11 in Weight 128 lb 6 oz BMI 25.9 BP 126/70 Blood Pressure Location Lt brachial Position Sitting Pulse 72 Pulse Source Pulse Oximeter Temp 97.1 F Temp Source Temporal Artery Scan Pulse Oximetry (%) 96 Oxygen Delivery Method Room Air Intake Visit Reasons: 6mth f/u Field Service Coordinator Required: No Accompanied by: Self / Same As Patient Allergies No Known Allergies Allergy (Verified 11/17/24 09:45) Tobacco use date assessed: 11/17/24 Fall risk assessment: No Falls in past year Last assessed Fall Risk: 05/19/25 Dental Screening Dental Screen Date: 11/17/24 [facility] Medical History Essential (primary) hypertension Hypercholesterolemia Diabetes mellitus GERD (gastroesophageal reflux disease) Surgical History History of cataract surgery Family History Father No problems noted. Mother No problems noted. Social History Housing: House Alcohol intake: never Patient Tobacco Use Status: Never used Tobacco Tobacco use type: Cigarette e-Cigarette/Vaping Use: Never Used Second Hand Smoke Exposure: No service: No Current occupational status: unemployed Cognitive needs: Yes (cane/wheelchair/walker) Hearing needs: No Vision needs: No Questionnaire PHQ-9 Over the last 2 weeks, how often have you been bothered by any of the following problems? 1. Little interest or pleasure in doing things: not at all 2. Feeling down, depressed, or hopeless: not at all 3. Trouble falling or staying asleep, or sleeping too much: not at all 4. Feeling tired or having little energy: not at all 5. Poor appetite or overeating: several days 6. Feeling bad about yourself - or that you are a failure or have let yourself or your family down: several days 7. Trouble concentrating on things, such as reading the newspaper or watching television: not at all 8. Moving or speaking so slowly that other people could have noticed. Or the opposite - being so fidgety or restless that you have been moving around a lot more than usual: not at all 9. Thoughts that you would be better off or of hurting yourself in some way: not at all Total score: 2 97772 - PHQ-9 Billing: Yes Source: Developed by Drs. Colin Lujan, Ingrid Stringer, [place] and colleagues, with an educational harry from [employer]. Thrive Questionnaire Date Thrive assessed: 05/19/25 I am a: Parent/Caregiver What is your living situation today?: I have a steady place to live Within the past 12 months, did the food you bought not last and you didn't have the money to get more?: Never true Within the past 12 months, did you worry whether your food would run out before you got money to buy more?: Never true Do you have trouble paying for medicines?: No Do you have trouble getting transportation to medical appointments?: No Do you have trouble paying your heating and electricity bill?: No Do you have trouble taking care of your child, family member or friend?: No Do you have trouble with day-to-day activities such as bathing, preparing meals, shopping, managing finances, etc.?: No Are you currently unemployed and looking for a job?: No Are you interested in more education?: No Please select the resources that you would like help with: None Currently or been in a relationship where the following occur: No concerns reported THRIVE Score: 0 AUDIT C Alcohol Use Questionnaire (AUDIT-C) 1. How often do you have a drink containing alcohol?: Never 3. How often do you have six or more drinks on one occasion?: Never Total Score: 0 DARLINE-7 AMB Questionnaire DARLINE-7 Date DARLINE - 7 assessed: 05/19/25 Feeling nervous, anxious, or on edge: 0 = Not at all Not being able to stop or control worryin = Not at all Worrying too much about different things: 0 = Not at all Trouble relaxin = Not at all Being so restless that it is hard to sit still: 0 = Not at all Becoming easily annoyed or irritable: 0 = Not at all Feeling afraid as if something awful might happen: 0 = Not at all Total DARLINE-7 score (0-4 normal; 5-9 mild; 10-14 moderate; 15-21 severe): 0 Source: Developed by Drs. Colin Lujan, Ingrid Stringer, [place] and colleagues, with an educational harry from [employer]. DARLINE-7 Assessment Billing DARLINE-7 Assessment Tool: DARLINE-7 Assessment 29976 Physical exam (Primary Care) Vital Signs: Last Vital Signs Temp 97.1 F 05/19/25 09:20 Pulse 72 05/19/25 09:20 BP 126/70 05/19/25 09:20 Pulse Ox 96 05/19/25 09:20 Oxygen Delivery Method Room Air 05/19/25 09:20 BMI result Body Mass Index 25.9 Tobacco/Smoking Status: Tobacco use Status Tobacco use date assessed 11/17/24 05/19/25 09:21 Patient Tobacco Use Status Never used Tobacco 05/19/25 09:21 Tobacco use type Cigarette 05/19/25 09:21 e-Cigarette/Vaping Use Never Used 05/19/25 09:21 PHQ-9: PHQ-9 Score PHQ-9: Total score 2 05/19/25 09:24 Thrive Assessment: Date of Thrive Assessment Date Thrive assessed 05/19/25 05/19/25 09:24 Currently or been in a relationship where the following occur: No concerns reported Coding Level of Care Code Est Pt Level 4 (93267) Complex EM visit Add On G2211 Diagnoses Type 2 diabetes mellitus without complication, without long-term current use of insulin E11.9 Diabetes mellitus type: type 2 Diabetes mellitus mcc insulin use: without mcc use Diabetes mellitus complication status: without complication Additional Codes DARLINE-7 Assessment Billing - DARLINE-7 Assessment Tool: DARLINE-7 Assessment 28843 ([id number]) PHQ-9 - 68886 - PHQ-9 Billing: Yes ([id number]) Assessment & Plan Assessment & Plan (1) Diabetes mellitus: Code(s): E11.9 - Type 2 diabetes mellitus without complications Category: Medical Qualifiers: Diabetes mellitus type: type 2 Diabetes mellitus terminal makeup operator insulin use: without mcc use Diabetes mellitus complication status: without complication Qualified Code(s): E11.9 - Type 2 diabetes mellitus without complications Plan: A1c is stable. Patient is frail, continue meds at same dosage. Encouraged her to eat healthy. Plan History of Present Illness - The patient is an 84-year-old female presenting with diabetes mellitus and leg pain. - Diabetes mellitus: The patient's blood work shows an A1c of 7.2, indicating suboptimal control of diabetes. She is currently taking her medications as prescribed. - Leg pain: The patient reports occasional aching in her legs, which is managed with Tylenol and exercise. The pain is not constant and does not significantly limit her daily activities. Social History - Exercise: The patient walks around the house sometimes, indicating a moderate level of physical activity. Review of Systems - General: Reports feeling cold in the wind and summer air. - Musculoskeletal: Reports occasional leg pain. - Endocrine: Reports blood sugar control with an A1c of 7.2. Physical Exam General: Cooperative and healthy appearing Nutritional Appearance: Well nourished Orientation/consciousness: Patient oriented x3 Limitations: No limitations Head: Normal to inspection General: Appearance normal, both eyes and all related structures Neck: Normal visual inspection Chest: Normal palpation of entire chest wall Respiratory: N ormal respiratory effort Neurology: Patient oriented x3, complains of aching in the leg. Results - Labs: Hemoglobin A1c is 7.2, indicating suboptimal glycemic control. Plan 1. Diabetes Mellitus - Continue current medication regimen as the patient is adherent. - Monitor blood glucose levels regularly to assess control. - Follow-up in six months to reassess A1c and overall management. 2. Leg Pain - Continue using Tylenol for pain management as needed. - Encourage regular exercise to improve leg strength and reduce pain. Discussion Notes During the visit, we discussed the patient's current management of diabetes mellitus, emphasizing the importance of medication adherence and regular monitoring of blood glucose levels. We also addressed the management of leg pain with Tylenol and encouraged regular exercise to alleviate symptoms. Follow-up was scheduled for six months to reassess the patient's condition and management plan. Patient Instructions - Continue taking your diabetes medication as prescribed. - Monitor your blood sugar levels regularly. - Use Tylenol for leg pain as needed. - Engage in regular exercise to help manage leg pain. - Return for a follow-up appointment in six months.
[2025-05-19 09:20] VITALS: BP 126/70; PULSE 72; TEMP 36.2; O2SAT 96; BMI 25.9
== END 2025-05-19 10:04 | disposition home or self-care (01) ==
LOC: HO.HMCH 09:03
PROVIDERS: PCP Internal Medicine; Visit Provider Internal Medicine
DX: E11.9 Type 2 diabetes mellitus without complications (principal)

== ENCOUNTER → 2025-05-19 09:02 | Outpatient (BNVA) | payer OTHER, SELFPAY | PROVIDERS: PCP Internal Medicine; Visit Provider Internal Medicine | DX: E11.9 Type 2 diabetes mellitus without complications (principal); M79.669 Pain in unspecified lower leg | CPT/HCPCS: 96127; 99212 ==

== ENCOUNTER 2025-08-19 09:26 | Outpatient (AMB) | payer OTHER, SELFPAY ==
--- NOTE | 2025-08-19 09:29 | MHC.PC.OV ---
Vital Signs 08/19/25 09:31 Height 4 ft 11 in Weight 127 lb 8 oz BMI 25.7 BP 120/62 Blood Pressure Location Rt brachial Position Sitting Pulse 67 Pulse Source Pulse Oximeter Temp 97.1 F Temp Source Temporal Artery Scan Pulse Oximetry (%) 100 Oxygen Delivery Method Room Air Intake Visit Reasons: fall with (L) knee and arm pain Intake Note: Patient is here to follow up on Fall with both knees and left arm pain. School Health Assistant Required: Yes Information Interpreted: non-clinical & clinical Children Teacher: Present Accompanied by: Daughter Allergies No Known Allergies Allergy (Verified 08/19/25 09:31) Tobacco use date assessed: 08/19/25 Fall risk assessment: 1 Fall in past year (08/17/25) Last assessed Fall Risk: 08/19/25 Dental Screening Dental Screen Date: 11/17/24 HPI HPI Comments History of Present Illness Details The patient is an 84-year-old female presenting with fall-related injuries. She experienced a fall on Friday while attempting to open a bathroom door, which resulted in her losing balance and falling. She did not lose consciousness but reported not remembering the incident clearly and subsequently experienced neck soreness. The patient has a history of falls, with a significant incident occurring approximately ten years ago on stairs. She has experienced minor falls since then, with associated knee pain and swelling, particularly after the recent fall. Her knees have been swollen, and she has reported pain in both knees and her left arm, which she attempted to use to brace her fall. Following the recent fall, emergency services were called, and her vital signs, including blood pressure and blood glucose levels, were checked. She declined hospital admission due to the late hour and opted for outpatient evaluation instead. [facility] Medical History (Updated 08/19/25 @ 12:10 by Silver Sierra MD) Essential (primary) hypertension Hypercholesterolemia Diabetes mellitus GERD (gastroesophageal reflux disease) Surgical History History of cataract surgery Family History Father No problems noted. Mother No problems noted. Social History Housing: House Alcohol intake: never Patient Tobacco Use Status: Never used Tobacco Tobacco use type: Cigarette e-Cigarette/Vaping Use: Never Used Second Hand Smoke Exposure: No service: No Current occupational status: unemployed Cognitive needs: Yes (cane/wheelchair/walker) Hearing needs: No Vision needs: No Questionnaire Thrive Questionnaire Date Thrive assessed: 05/14/25 I am a: Parent/Caregiver What is your living situation today?: I have a steady place to live Within the past 12 months, did the food you bought not last and you didn't have the money to get more?: Never true Within the past 12 months, did you worry whether your food would run out before you got money to buy more?: Never true Do you have trouble paying for medicines?: No Do you have trouble getting transportation to medical appointments?: No Do you have trouble paying your heating and electricity bill?: No Do you have trouble taking care of your child, family member or friend?: No Do you have trouble with day-to-day activities such as bathing, preparing meals, shopping, managing finances, etc.?: No Are you currently unemployed and looking for a job?: No Are you interested in more education?: No Please select the resources that you would like help with: None Currently or been in a relationship where the following occur: No concerns reported THRIVE Score: 0 DARLINE-7 AMB Questionnaire DARLINE-7 Date DARLINE - 7 assessed: 05/19/25 Source: Developed by Drs. Colin Lujan, Ingrid Stringer, [place] and colleagues, with an educational harry from [employer] Review of Systems Const Details: Positives besides what was mentioned in HPI are in BOLD Constitutional: No Weight Change, No Fever, No Chills, No Night Sweats, No Fatigue, No Malaise ENT/Mouth: No Hearing Changes, No Ear Pain, No Nasal Congestion, No Sinus Pain, No Hoarseness, No sore throat, No Rhinorrhea, No Swallowing Difficulty Eyes: No Eye Pain, No Swelling, No Redness, No Foreign Body, No Discharge, No Vision Changes Cardiovascular: No Chest Pain, No SOB, No PND, No Dyspnea on Exertion, No Orthopnea, No Claudication, No Edema, No Palpitations Respiratory: No Cough, No Sputum, No Wheezing, No Smoke Exposure, No Dyspnea Gastrointestinal: No Nausea, No Vomiting, No Diarrhea, No Constipation, No Pain, No Heartburn, No Anorexia, No Dysphagia, No Hematochezia, No Melena, No Flatulence, No Jaundice Genitourinary: No Dysmenorrhea, No DUB, No Dyspareunia, No Dysuria, No Urinary Frequency, No Hematuria, No Urinary Incontinence, No Urgency, No Flank Pain, No Urinary Flow Changes, No Hesitancy Musculoskeletal: No Arthralgias, No Myalgias, No Joint Swelling, No Joint Stiffness, No Back Pain, No Neck Pain, No Injury History Skin: No Skin Lesions, No Pruritis, No Hair Changes, No Breast/Skin Changes, No Nipple Discharge Neuro: No Weakness, No Numbness, No Paresthesias, No Loss of Consciousness, No Syncope, No Dizziness, No Headache, No Coordination Changes, No Recent Falls Psych: No Anxiety/Panic, No Depression, No Insomnia, No Personality Changes, No Delusions, No Rumination, No SI/HI/AH/VH, No Social Issues, No Memory Changes, No Violence/Abuse Hx., No Eating Concerns Heme/Lymph: No Bruising, No Bleeding, No Transfusions History, No Lymphadenopathy Endocrine: No Polyuria, No Polydipsia, No Temperature Intolerance Physical exam (Primary Care) Vital Signs: Last Vital Signs Temp 97.1 F 08/19/25 09:31 Pulse 67 08/19/25 09:31 BP 120/62 08/19/25 09:31 Pulse Ox 100 08/19/25 09:31 Oxygen Delivery Method Room Air 08/19/25 09:31 BMI result Body Mass Index 25.7 Tobacco/Smoking Status: Tobacco use Status Tobacco use date assessed 08/19/25 08/19/25 09:38 Patient Tobacco Use Status Never used Tobacco 08/19/25 09:30 Tobacco use type Cigarette 08/19/25 09:30 e-Cigarette/Vaping Use Never Used 08/19/25 09:30 Thrive Assessment: Date of Thrive Assessment Date Thrive assessed 05/14/25 08/19/25 09:30 Currently or been in a relationship where the following occur: No concerns reported Const Other: Pertinent findings are in BOLD GENERAL APPEARANCE NAD, activity normal for age, well developed/ well nourished, no cyanosis, pallor, or diaphoresis. EYES lids/conjunctiva normal. EARS/NOSE/THROAT Mucous membranes moist, nares normal, lips/teeth normal uvula midline without oral pharyngeal erythema, exudate or swelling TMs normal bilaterally. No lymphangitis/lymphedema. HEAD/NECK normocephalic atraumatic, no facial trauma, neck is supple. RESPIRATORY respiratory effort normal, speaks in full sentences, no tripod position, no accessory muscle use. Lungs clear to auscultation without rhonchi, wheezes, rales CARDIAC Regular rate and rhythm, no edema. ABDOMINAL Soft, ND/NT. No evidence of fluid wave. No pulsatile masses on exam, rebound tenderness, Monsalve sign or pain over Mcburney's point. MUSCLES/EXTREMITIES Bruising on right eye, right shoulder, bilateral knees. Tenderness in left shoulder and left side of neck. SKIN Warm, pink and dry. No rashes, dermatoses, petechiae or lesions. NEUROLOGICAL Speech is clear and appropriate. Normal level of consciousness. Gait and coordination are normal. 5/5 strength in all extremities. PSYCH Normal mood and affect. Judgement/competence is appropriate Coding Level of Care Code Est Pt Level 5 (25221) Diagnoses Fall W19.XXXA Eye bruise S05.10XA Time Spent (min) 40 Assessment & Plan Assessment & Plan (1) Fall: Code(s): W19.XXXA - Unspecified fall, initial encounter Category: Medical Plan: - Plan to obtain CT scan of the head and x-rays of the knees, left arm, and shoulders to assess for fractures or other injuries. - Consideration for orthopedic consultation if imaging reveals fractures. (2) Eye bruise: Code(s): S05.10XA - Contusion of eyeball and orbital tissues, unspecified eye, initial encounter Category: Medical Plan: Ophthalmology referral. CT head to rule out fracture. Plan I discussed with the patient and her daughter the importance of obtaining imaging studies to assess for any fractures or injuries following the fall. We agreed on obtaining a CT scan of the head and x-rays of the knees and left arm. I explained that if any fractures are identified, an orthopedic consultation may be necessary. We also discussed about following up with the patient's research associate policy urgently and to try to schedule an appointemtn today. Follow-up today after patient's imaging. Orders: Orders XR Knee Armond 3V Today W19.XXXA - Unspecified fall, initial encounter XR hand LT min 3V Today W19.XXXA - Unspecified fall, initial encounter XR wrist LT 2V Today W19.XXXA - Unspecified fall, initial encounter XR cervical spine 3V Today W19.XXXA - Unspecified fall, initial encounter XR shoulder RT min 2V Today W19.XXXA - Unspecified fall, initial encounter Complete Blood Count Auto Diff Today W19.XXXA - Unspecified fall, initial encounter Comprehensive Met. Panel Today W19.XXXA - Unspecified fall, initial encounter CT head/brain wo IV con Today W19.XXXA - Unspecified fall, initial encounter XR Shoulder Armond min 2V Today W19.XXXA - Unspecified fall, initial encounter XR forearm LT 2V Today W19.XXXA - Unspecified fall, initial encounter XR elbow RT 2V Today W19.XXXA - Unspecified fall, initial encounter Referrals Ophthalmology Referral W19.XXXA - Unspecified fall, initial encounter
[2025-08-19 09:31] VITALS: BP 120/62; PULSE 67; TEMP 36.2; O2SAT 100; BMI 25.7
== END 2025-08-19 10:30 | disposition home or self-care (01) ==
LOC: HO.HMCH 09:27
PROVIDERS: PCP Internal Medicine; Visit Provider Internal Medicine
DX: S05.10XA Contusion of eyeball and orbital tissues, unspecified eye, initial encounter (principal); W19.XXXA Unspecified fall, initial encounter

== ENCOUNTER 2025-08-19 09:26 | Outpatient (REF) | payer OTHER, SELFPAY ==
--- NOTE | ~2025-08-19 | XR_ITS ---
XR KNEE ARMOND 3V HISTORY: Fall, knee pain. COMPARISON: 05/24/2022. TECHNIQUE: AP view bilateral knees standing, lateral and patellofemoral views of each knee. FINDINGS: RIGHT KNEE: No fracture, dislocation, or suspicious bone lesion. There is no malalignment. Moderate to severe joint space loss in the medial compartment with near [id number] appearance. Moderate changes in the lateral and patellofemoral compartment. No evidence of joint effusion. Soft tissues demonstrate vascular calcifications but are otherwise unremarkable. LEFT KNEE: No fracture, dislocation, or suspicious bone lesion. There is no malalignment. Moderate to severe joint space loss in the medial compartment with near [id number] appearance. Moderate changes in the lateral and patellofemoral compartment. No evidence of joint effusion. Soft tissues demonstrate vascular calcifications but are otherwise unremarkable. XR/XR Knee Armond 3V IMPRESSION: 1. No acute bony or soft tissue abnormalities of either knee. No joint effusions. 2. Tricompartmental osteoarthritis bilaterally, moderate to severe in the medial compartments. Electronically signed by: Berto Sigala MD 08/19/2025 01:12 PM EDT
--- NOTE | ~2025-08-19 | XR_ITS ---
EXAMINATION: XR SHOULDER, ARMOND 3V CLINICAL INFORMATION: W19.XXXA - Unspecified fall, initial encounter COMPARISON: None available. TECHNIQUE: Four views of each shoulder were obtained. FINDINGS: LEFT SHOULDER: No fracture, dislocation, or suspicious bone lesion. No dislocation. Moderate degenerative arthritis in the glenohumeral joint with undersurface spurring and calcification of the inferior labrum. Mild subluxation of the AC joint, likely on the basis of age indeterminant low-grade AC separation. Moderate to severe superior and undersurface spurring of the AC joint. No significant subacromial spurring. There is mild narrowing of the subacromial space present. There is no soft tissue abnormality. RIGHT SHOULDER: No fracture, dislocation, or suspicious bone lesion. No malalignment. Moderate degenerative arthritis in the glenohumeral joint with undersurface spurring and calcification of the inferior labrum. Moderate superior and undersurface spurring of the AC joint. No significant subacromial spurring. There is mild narrowing of the subacromial space present. There is no soft tissue abnormality. XR/XR Shoulder Armond min 2V IMPRESSION: LEFT SHOULDER: 1. No definite fracture identified. 2. Age indeterminate low-grade AC separation. 3. Moderate degenerative arthritis in the glenohumeral joint, and moderate to severe changes in the AC joint. RIGHT SHOULDER: 1. No definite fracture identified. The joint is intact. 2. Moderate degenerative arthritis in the glenohumeral and AC joint. Electronically signed by: Berto Sigala MD 08/19/2025 01:21 PM EDT
--- NOTE | ~2025-08-19 | XR_ITS ---
EXAMINATION: XR ELBOW, ARMOND 2V CLINICAL INFORMATION: W19.XXXA - Unspecified fall, initial encounter COMPARISON: None available. TECHNIQUE: AP, lateral, and oblique views of each elbow. FINDINGS: RIGHT ELBOW: No definite fracture, dislocation, or suspicious bone lesion. There is no evidence of a joint effusion. There is normal alignment. Mild degenerative arthritis is present in the radiocapitellar joint, and ulnar trochlear joint, with mild marginal spurring. Enthesopathic spurring is present of the epicondyles medial greater than lateral. Small olecranon spur is present. There is mild soft tissue swelling overlying the medial epicondyle. LEFT ELBOW: No definite fracture, dislocation, or suspicious bone lesion. There is no evidence of a joint effusion. There is normal alignment. Mild degenerative arthritis is present in the radiocapitellar joint, and ulnar trochlear joint, with mild marginal spurring. Enthesopathic spurring is present of the epicondyles medial greater than lateral. Small olecranon spur is present. There is mild soft tissue swelling overlying the medial epicondyle. XR/XR Elbow Armond 2V IMPRESSION: 1. No definite fracture, dislocation, or joint effusion in either elbow. 2. Chronic changes as discussed. Electronically signed by: Berto Sigala MD 08/19/2025 12:52 PM EDT
--- NOTE | ~2025-08-19 | XR_ITS ---
EXAMINATION: XR CERVICAL SPINE CLINICAL INFORMATION: W19.XXXA - Unspecified fall, initial encounter COMPARISON: None available. TECHNIQUE: 3 views of the cervical spine were obtained. FINDINGS: There is no scoliosis. There is a mild reversal of the normal lordosis centered at C4. There is no definite bony fracture, compression deformity, or traumatic subluxation. There are multilevel minimal degenerative subluxations. The craniocervical junction, and C1-2 articulation are intact and aligned. Severe degenerative disc changes are present C5-6, and C6-7, as well as C3-4. There is otherwise moderate disc degeneration. There is normal facet alignment. There is multilevel hypertrophic degenerative facet change bilaterally. No prevertebral soft tissue swelling. There are right greater than left carotid bulb calcifications. Imaged lung apices are clear. XR/XR cervical spine 3V IMPRESSION: 1. No radiographically acute findings of the cervical spine. 2. Advanced multilevel cervical spondylosis. Electronically signed by: Berto Sigala MD 08/19/2025 01:07 PM EDT
--- NOTE | ~2025-08-19 | XR_ITS ---
EXAMINATION: XR HAND 3 OR MORE VIEWS LEFT, XR WRIST 1-2 VIEWS LEFT HISTORY: W19.XXXA - Unspecified fall, initial encounter COMPARISON: There are no prior studies available for comparison. FINDINGS: Seven views of the left hand and wrist including a scaphoid view are submitted. The bones are osteopenic. There is no fracture or dislocation. The joint spaces are preserved. The soft tissues are unremarkable. XR/XR hand LT min 3V IMPRESSION: Osteopenia. No evidence of fracture of the left hand or wrist. Electronically signed by: Colin Zamora MD 08/19/2025 12:52 PM EDT
--- NOTE | ~2025-08-19 | XR_ITS ---
EXAMINATION: XR HAND 3 OR MORE VIEWS LEFT, XR WRIST 1-2 VIEWS LEFT HISTORY: W19.XXXA - Unspecified fall, initial encounter COMPARISON: There are no prior studies available for comparison. FINDINGS: Seven views of the left hand and wrist including a scaphoid view are submitted. The bones are osteopenic. There is no fracture or dislocation. The joint spaces are preserved. The soft tissues are unremarkable. XR/XR wrist LT 2V IMPRESSION: Osteopenia. No evidence of fracture of the left hand or wrist. Electronically signed by: Colin Zamora MD 08/19/2025 12:52 PM EDT
--- NOTE | ~2025-08-19 | XR_ITS ---
EXAMINATION: XR FOREARM 2 VIEWS LEFT HISTORY: W19.XXXA - Unspecified fall, initial encounter COMPARISON: There are no prior studies available for comparison. FINDINGS: AP and lateral views of the left forearm are submitted. Osseous mineralization is normal. There is no fracture or dislocation. The visualized wrist and elbow joint spaces are preserved. The soft tissues are unremarkable. XR/XR forearm LT 2V IMPRESSION: Unremarkable examination of the left forearm. Electronically signed by: Colin Zamora MD 08/19/2025 12:45 PM EDT
[2025-08-19 11:58] LABS: Hematocrit 35.3 % (37.0-47.0); Hemoglobin 11.3 g/dl (12.0-16.0); Imm Gran Abs Auto 0.02 X10*3/uL (0.00-0.03); Imm Gran Pct Auto 0.3 % (0.0-0.4); Lymphocytes Absolute Auto 2.8 X10*3/uL (1.2-4.9); MANUAL DIFF FLAG SCAN; Mean Corpuscular HGB Conc 32.0 g/dl (31.0-35.0); Mean Corpuscular Hemoglobin 28.5 pg (27.0-33.0); Mean Corpuscular Volume 89.1 fL (80.0-98.0); NRBC Abs Auto 0.000 X10*3/uL (0.0-0.012); NRBC Pct Auto 0.0 /100WBC (0.0-0.2); PLT CLUMP 1; Red Blood Count 3.96 X10*6/uL (4.20-5.50); SCAN SMEAR FLAG 1; White Blood Count 7.3 X10*3/uL (4.8-10.8)
[2025-08-19 12:15] LABS: Platelet Count 170 X10*3/uL (160-400)
[2025-08-19 12:21] LABS: Alanine Aminotransferase 14 U/L (0-31); Albumin Level 4.3 g/dL (3.5-5.0); Alkaline Phosphatase 44 U/L (39-117); Anion Gap 15 (12-20); Aspartate Amino Transferase 29 U/L (5-31); Blood Urea Nitrogen 19 mg/dL (9-16); Calcium 9.7 mg/dL (8.4-10.2); Carbon Dioxide 20 mmol/L (22-29); Chloride 108 mmol/L (96-108); Estimated Glomerular Filt Rate > 60; Potassium 4.6 mmol/L (3.3-5.1); Sodium 138 mmol/L (135-145); Total Protein 7.7 g/dL (6.5-8.0)
== END 2025-08-19 09:27 | disposition home or self-care (01) ==
LOC: HO.XRAY 09:26
PROVIDERS: PCP Internal Medicine; Visit Provider Internal Medicine
DX: S05.10XD Contusion of eyeball and orbital tissues, unspecified eye, subsequent encounter (principal); Z91.81 History of falling
CPT/HCPCS: 36415; 72040; 73030; 73070; 73090; 73100; 73130; 73562; 80053; 85025; 99212

== ENCOUNTER → 2025-08-19 11:17 | Outpatient (BNV) | payer OTHER, SELFPAY | PROVIDERS: PCP Internal Medicine; Visit Provider Radiology Diagnostic Radiology | DX: M54.2 Cervicalgia (principal); M19.011 Primary osteoarthritis, right shoulder; M19.012 Primary osteoarthritis, left shoulder; M85.842 Other specified disorders of bone density and structure, left hand; M25.532 Pain in left wrist; M17.0 Bilateral primary osteoarthritis of knee; M19.022 Primary osteoarthritis, left elbow; M77.01 Medial epicondylitis, right elbow; M79.632 Pain in left forearm | CPT/HCPCS: 72040; 73030; 73070; 73090; 73100; 73130; 73562 ==

== ENCOUNTER 2025-09-02 10:04 | Outpatient (REF) | payer OTHER, SELFPAY ==
--- NOTE | ~2025-09-02 | CT_ITS ---
EXAMINATION: CT HEAD WITHOUT IV CONTRAST HISTORY: W19.XXXA - Unspecified fall, initial encounter. TECHNIQUE: Unenhanced helical CT of the head was performed per standard departmental protocol. Coronal and sagittal reformats of the head were also evaluated. One or more of the following techniques was used for dose reduction: Automated exposure control, adjustment of the mA and/or kV according to patient size, use of iterative reconstruction technique. DLP: 564 mGy-cm COMPARISON: Comparison is made with the prior examination dated 04/04/2022. FINDINGS: BRAIN: There is mild prominence of the ventricular system and cortical sulci, consistent with atrophy. Periventricular and subcortical white matter hypodensities are noted which are nonspecific, but often seen in the setting of small vessel ischemic disease. 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 There is no mass effect or midline shift. No intra- or extra-axial fluid collections are identified. SINUSES: The visualized paranasal sinuses are clear. The mastoid air cells and middle ear cavities are well pneumatized. ORBITS: The visualized orbits are unremarkable. BONES/SOFT TISSUES: The extracranial soft tissues are unremarkable. The calvarium is intact. No suspicious lytic or sclerotic lesions. CT/CT head/brain wo IV con IMPRESSION: No acute intracranial abnormality. Electronically signed by: Colin Zamora MD 09/02/2025 10:40 AM EDT
== END 2025-09-02 10:05 | disposition home or self-care (01) ==
LOC: HO.CT 10:04
PROVIDERS: PCP Internal Medicine; Visit Provider Internal Medicine
DX: Z91.81 History of falling (principal)
CPT/HCPCS: 70450

== ENCOUNTER → 2025-09-02 10:11 | Outpatient (BNV) | payer OTHER, SELFPAY | PROVIDERS: PCP Internal Medicine; Visit Provider Radiology Diagnostic Radiology | DX: S09.90XA Unspecified injury of head, initial encounter (principal) | CPT/HCPCS: 70450 ==